=== PATIENT | female | born 1960 | race Caucasian/White ===

== ENCOUNTER 2020-01-25 00:12 | Emergency (ER) | payer MEDICAID ==
--- NOTE | 2020-01-25 00:52 | EDM.PDOC ---
ED HPI GENERAL MEDICAL PROBLEM - General Chief Complaint: Cardiovascular Problem Stated Complaint: HEART ISSUES Time Seen by Provider: 01/25/20 00:44 Source of Information: Reports: Patient, RN Notes Reviewed History Limitations: Reports: No Limitations - History of Present Illness INITIAL COMMENTS - FREE TEXT/NARRATIVE: 59-year-old female presents emergency department a complaint of difficulty swallowing she states is been going on for 10 days unable to get any solid foods down is still able to drink liquids but has not been able to get her pills down because it feels like they get stuck. She was told by her primary care provider that no EGDs will be done during the [place] pandemic this is why she waited, but she has not been able to take any of her blood pressure medications and she does admit to high anxiety. - Related Data Allergies Allergy/AdvReac Type Severity Reaction Status Date / Time No Known Allergies Allergy Verified 01/25/20 00:25 Home Meds: Home Meds Albuterol Sulfate [Albuterol Sulfate Hfa] 2 puff INH Q4H 01/25/20 [History] Citalopram [Citalopram HBr] 20 mg PO DAILY 01/25/20 [History] LORazepam [Lorazepam] 1 mg PO Q6H PRN 01/25/20 [History] Levothyroxine 1 tab PO DAILY 01/25/20 [History] Omeprazole 40 mg PO DAILY 01/25/20 [History] Oxybutynin 1 tab PO BID 01/25/20 [History] lisinopriL [Lisinopril] 1 tab PO DAILY 01/25/20 [History] Past Medical History HEENT History: Reports: Impaired Vision Cardiovascular History: Reports: Hypertension Respiratory History: Reports: Asthma, Bronchitis, Recurrent Gastrointestinal History: Reports: GERD Genitourinary History: Reports: Urinary Incontinence 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: Musculoskeletal History: Reports: Osteoarthritis, Other (See Below) Other Musculoskeletal History: cubital tunnel Psychiatric History: Reports: Anxiety, Depression Endocrine/Metabolic History: Reports: Hypothyroidism - Infectious Disease History Infectious Disease History: Reports: Chicken Pox, Measles, Mumps - Past Surgical History GI Surgical History: Reports: Cholecystectomy, Colonoscopy Female Surgical History: Reports: Tubal Ligation Social & Family History - Family History Family Medical History: Noncontributory - Tobacco Use Smoking Status *Q: Never Smoker - Caffeine Use Caffeine Use: Reports: None - Recreational Drug Use Recreational Drug Use: No ED ROS GENERAL - Review of Systems Review Of Systems: See Below Constitutional: Reports: No Symptoms HEENT: Reports: Other (Difficulty swallowing) Respiratory: Reports: No Symptoms Cardiovascular: Reports: No Symptoms GI/Abdominal: Reports: Difficulty Swallowing : Reports: No Symptoms Psychiatric: Reports: Anxiety ED EXAM, GENERAL - Physical Exam Exam: See Below Exam Limited By: No Limitations General Appearance: Alert, WD/WN, No Apparent Distress Respiratory/Chest: No Respiratory Distress, Lungs Clear, Normal Breath Sounds, No Accessory Muscle Use, Chest Non-Tender Cardiovascular: Regular Rate, Rhythm, No Murmur GI/Abdominal: Soft, Non-Tender Course - Vital Signs Last Recorded V/S: Last Vital Signs Temp 97.0 F 01/25/20 00:30 Pulse 103 H 01/25/20 00:30 Resp 16 01/25/20 00:30 BP 139/98 H 01/25/20 00:30 Pulse Ox 98 01/25/20 00:30 - Orders/Labs/Meds Labs: Laboratory Tests 01/25/20 01/25/20 Range/Units 01:00 01:00 WBC 9.7 (4.5-11.0) K/uL RBC 5.65 H (3.30-5.50) M/uL Hgb 15.5 H (12.0-15.0) g/dL Hct 47.3 (36.0-48.0) % MCV 84 (80-98) fL MCH 27 (27-31) pg MCHC 33 (32-36) % Plt Count 364 (150-400) K/uL Neut % (Auto) 66 (36-66) % Lymph % (Auto) 28 (24-44) % [place] % (Auto) 6 (2-6) % Eos % (Auto) 1 L (2-4) % Baso % (Auto) 0 (0-1) % Sodium 139 L (140-148) mmol/L Potassium 3.4 L (3.6-5.2) mmol/L Chloride 102 (100-108) mmol/L Carbon Dioxide 20 L (21-32) mmol/L Anion Gap 20.4 H (5.0-14.0) mmol/L BUN 12 (7-18) mg/dL Creatinine 0.9 (0.6-1.0) mg/dL Est Cr Clr Drug Dosing 52.57 mL/min Estimated GFR (MDRD) > 60 (>60) Glucose 87 (74-106) mg/dL Calcium 9.3 (8.5-10.1) mg/dL Total Bilirubin 0.5 (0.2-1.0) mg/dL AST 29 (15-37) U/L ALT 59 (12-78) U/L Alkaline Phosphatase 124 H (46-116) U/L Total Protein 8.5 H (6.4-8.2) g/dL Albumin 3.9 (3.4-5.0) g/dL Globulin 4.6 H (2.3-3.5) g/dL Albumin/Globulin Ratio 0.9 L (1.2-2.2) Departure - Departure Time of Disposition: 01:33 Disposition: Home, Self-Care 01 Condition: Fair Clinical Impression: Dysphagia Qualifiers: Dysphagia type: esophageal phase Qualified Code(s): R13.10 - Dysphagia, unspecified Instructions: Dysphagia Referrals: PCP,None [Primary Care Provider] - Forms: ED Department Discharge Additional Instructions: Outpatient surgery will call you this morning for an appointment time with Dr. Helm to do an EGD on call return to the emergency department worsening of symptoms Sepsis Event Note - Evaluation Sepsis Screening Result: No Definite Risk - Focused Exam Vital Signs: Vital Signs Temp Pulse Resp BP Pulse Ox 01/25/20 00:30 97.0 F 103 H 16 139/98 H 98 Date Exam was Performed: 01/25/20 Time Exam was Performed: 01:32 - Assessment/Plan Plan: Assessment Acuity = acute Site and laterality = dysphagia Etiology = unknown Manifestations = difficulty swallowing medications Location of injury = Home Lab values = CBC CMP unremarkable Plan Call discussed case Dr. Helm at 120 recommended EGD she will be set up for an EGD of this week continue to push liquids and trying put medications into putting to get them down, outpatient surgery will call her this morning for an appointment time This note was dictated using [employer] voice recognition software please call with any questions on syntax or grammar.
== END 2020-01-25 01:44 | disposition home or self-care (01) ==
LOC: JP.ED 00:12
DX: R13.10 Dysphagia, unspecified (principal); I10 Essential (primary) hypertension; J45.909 Unspecified asthma, uncomplicated; K21.9 Gastro-esophageal reflux disease without esophagitis; M19.90 Unspecified osteoarthritis, unspecified site; F41.9 Anxiety disorder, unspecified; F32.9 Major depressive disorder, single episode, unspecified; E03.9 Hypothyroidism, unspecified; Z79.899 Other long term (current) drug therapy
CPT/HCPCS: 36415; 80053; 85025; 99284

== ENCOUNTER → 2020-01-26 | Day surgery (SDC) | payer MEDICAID ==
[~2020-01-26] MED LIST: Dexamethasone 4 MG/ML SDV ONE; Dextrose 5%-Lactated Ringers 1,000 ML IV SCH; Glycopyrrolate 0.2 MG/ML 2 ML SDV IVPUSH ONE; Glycopyrrolate 0.2 MG/ML 5 ML MDV ONE; Meropenem 500 MG SDV ONE; Midazolam 1 MG/ML 2 ML SDV ONE; Neostigmine Methylsulfate 1 MG/ML 5 ML Syringe ONE; Ondansetron 4 MG/2 ML SDV ONE; Propofol 200 MG/20 ML SDV ONE; Rocuronium 50 MG/5 ML Vial ONE; Succinylcholine 200 MG/10 ML MDV ONE; fentaNYL 100 MCG/2 ML SDV ONE; fentaNYL 250 MCG/5 ML SDV ONE
--- NOTE | 2020-02-08 16:08 | OR ---
DATE OF PROCEDURE: 01/26/2020 SURGEON: Mike Helm MD PREOPERATIVE DIAGNOSIS: Gastroesophageal reflux disease with dysphagia referable to laryngopharyngeal level. POSTOPERATIVE DIAGNOSIS: Gastroesophageal reflux disease with: 1. Reddened and edematous hypopharynx and larynx. 2. Moderate-sized hiatal hernia with active inflammation. 3. Mild antral gastritis. OPERATIVE PROCEDURE: Esophagogastroduodenoscopy with: 1. Biopsies of esophagogastric junction for histologic evaluation. 2. Biopsies of antrum for CLOtest. ANESTHESIA: IV sedation. INDICATION FOR PROCEDURE: This is a 59-year-old female with a history of worsening gastroesophageal reflux disease. This has been associated recently with worsening problems with laryngopharyngeal dysphagia. The patient does report bile getting up into throat and as such she presently has been on omeprazole without adequate control of the symptoms. Plan is to proceed with upper GI endoscopy with biopsies and dilation as indicated. Potential risks including bleeding and perforation were discussed, and the patient wishes to proceed. DETAILS OF PROCEDURE: The patient was taken to the operating room, placed in a left lateral decubitus position. IV sedation was administered, after which the upper GI endoscope was passed orally through the length of esophagus into the stomach with retroflexion view of the fundus, and thereafter through the pyloric channel and into the proximal duodenum. Findings included some reddening and edema of the hypopharynx and larynx, consistent with some ongoing reflux. The upper esophageal sphincter and esophageal body were unremarkable. There was moderate-sized hiatal hernia measuring around 3 cm and quite active inflammation of the distal esophagus. There was a slight upward extension of the gastroesophageal junction mucosal line, potentially associated with some Hernandez esophagus. There was no gross evidence of plaquing and no stricturing at the esophagogastric junction. Within the stomach, there was some mild patchy redness in the antrum. Otherwise, the pyloric channel, duodenum at the junction of third and fourth portions were unremarkable. At this point, biopsies were obtained from the antrum and sent for CLOtest for H. pylori. Multiple biopsies were obtained from esophagogastric junction and sent for histologic evaluation and no bleeding was seen. Scope was then withdrawn and the procedure was then concluded. Prior to the procedure, we had initially discussed possible surgical intervention and following today's findings the patient wishes to proceed with a Corinna fundoplication that will be set up for tomorrow. The potential side effects and complications were reviewed, and those will be reviewed once again tomorrow morning prior to the procedure. Mike Helm MD /[id number]
== END ==
LOC: JP.SDS 06:52
PROVIDERS: ATTEND Surgery
DX: K21.0 Gastro-esophageal reflux disease with esophagitis (principal); K29.50 Unspecified chronic gastritis without bleeding; K22.70 Barrett's esophagus without dysplasia; K44.0 Diaphragmatic hernia with obstruction, without gangrene; J38.4 Edema of larynx; J39.2 Other diseases of pharynx; I10 Essential (primary) hypertension; F41.9 Anxiety disorder, unspecified
CPT/HCPCS: 36415; 43239; 80053; 83735; 84100; 85027; 87081; 88305; J2185; J2250; J2704; J3010; J3490; J7121

== ENCOUNTER 2020-01-27 05:37 | Inpatient (IN) | payer MEDICAID ==
[2020-01-27] MEDS ORDERED: Acetaminophen 500 MG Tab PO ONE (05:45)
[2020-01-27] MEDS ORDERED: Scopolamine 1.5 MG Transdermal Patch TRDERM SCH (05:45)
[2020-01-27] MEDS ORDERED: Dextrose 5%-Lactated Ringers 1,000 ML IV SCH ×2 (06:00→10:15)
[2020-01-27] MEDS ORDERED: ceFAZolin 2 GM in Premix Bag 1 BAG IV ONE (07:15)
[2020-01-27] MEDS ORDERED: Albuterol/Ipratropium 3.0-0.5 MG/3 ML Neb Soln NEB ONE (07:15)
[2020-01-27] MEDS ORDERED: Ropivacaine 50 ML, dexAMETHasone 8 MG, EPINEPHrine 0.4 MG, Sodium Chloride 0.9% 27.6 ML NERVRT SCH ×4 (07:30)
[2020-01-27] MEDS ORDERED: Ketamine 50 MG in Sodium Chloride 0.9% 49.5 ML IV SCH (07:30)
[2020-01-27] MEDS ORDERED: Ketamine 500 MG/5 ML MDV IV SCH (07:30)
[2020-01-27] MEDS ORDERED: Dexamethasone 4 MG/ML SDV ONE (08:00)
[2020-01-27] MEDS ORDERED: Neostigmine Methylsulfate 1 MG/ML 5 ML Syringe ONE (08:00)
[2020-01-27] MEDS ORDERED: fentaNYL 100 MCG/2 ML SDV ONE (08:00)
[2020-01-27] MEDS ORDERED: Propofol 200 MG/20 ML SDV ONE (08:00)
[2020-01-27] MEDS ORDERED: fentaNYL 250 MCG/5 ML SDV ONE (08:00)
[2020-01-27] MEDS ORDERED: Rocuronium 50 MG/5 ML Vial ONE (08:00)
[2020-01-27] MEDS ORDERED: Succinylcholine 200 MG/10 ML MDV ONE (08:00)
[2020-01-27] MEDS ORDERED: Ondansetron 4 MG/2 ML SDV ONE (08:00)
[2020-01-27] MEDS ORDERED: Glycopyrrolate 0.2 MG/ML 5 ML MDV ONE (08:00)
[2020-01-27] MEDS ORDERED: hydrOXYzine HCL 100 MG/2 ML SDV IM ONE (08:47)
[2020-01-27] MEDS ORDERED: HYDROmorphone 0.5 MG/0.5 ML Syringe IVPUSH PRN (10:15)
[2020-01-27] MEDS ORDERED: Ondansetron 4 MG/2 ML SDV IVPUSH PRN (10:15)
[2020-01-27] MEDS ORDERED: Albuterol/Ipratropium 3.0-0.5 MG/3 ML Neb Soln INH PRN (10:15)
[2020-01-27] MEDS ORDERED: HYDROmorphone 1 MG/ML Syringe IV PRN (10:15)
[2020-01-27] MEDS ORDERED: HYDROmorphone 2 MG Tab PO PRN (10:18)
[2020-01-27] MEDS ORDERED: LORazepam 1 MG Tab PO PRN (10:20)
[2020-01-27] MEDS: Albuterol/Ipratropium 3.0-0.5 MG/3 ML Neb Soln INH SCH ×3 (10:43→20:07)
[2020-01-27] MEDS: Metoclopramide 10 MG/2 ML SDV IVPUSH SCH ×3 (12:35→23:25)
[2020-01-27] MEDS: Pantoprazole 40 MG Vial IVPUSH SCH (12:35)
[2020-01-27] MEDS: Acetaminophen 325 MG Tab PO SCH ×3 (12:36→23:33)
[2020-01-27] MEDS: ceFAZolin 2 GM in Premix Bag 1 BAG IV SCH ×2 (16:48→23:25)
[2020-01-27] MEDS: Oxybutynin 5 MG Tab PO SCH (20:02)
[2020-01-27] MEDS: Ketotifen 0.025% Ophth Soln 5 ML Bottle EYEBOTH SCH (20:02)
[2020-01-28] MEDS: Metoclopramide 10 MG/2 ML SDV IVPUSH SCH ×4 (05:19→23:49)
[2020-01-28] MEDS: Acetaminophen 325 MG Tab PO SCH ×4 (05:30→23:53)
[2020-01-28] MEDS: Albuterol/Ipratropium 3.0-0.5 MG/3 ML Neb Soln INH SCH ×4 (07:20→20:04)
[2020-01-28] MEDS: Levothyroxine 112 MCG Tab PO SCH (07:26)
[2020-01-28] MEDS: Ketotifen 0.025% Ophth Soln 5 ML Bottle EYEBOTH SCH ×2 (10:01→20:04)
[2020-01-28] MEDS: Citalopram 20 MG Tab PO SCH (10:01)
[2020-01-28] MEDS: Oxybutynin 5 MG Tab PO SCH ×2 (10:02→20:04)
[2020-01-28] MEDS: Lisinopril 20 MG Tab PO SCH (10:02)
[2020-01-28] MEDS: Pantoprazole 40 MG Vial IVPUSH SCH (12:15)
[2020-01-28] MEDS: Dextrose 5%-Lactated Ringers 1,000 ML IV SCH (16:20)
[2020-01-29] MEDS: Dextrose 5%-Lactated Ringers 1,000 ML IV SCH (03:48)
[2020-01-29] MEDS: Metoclopramide 10 MG/2 ML SDV IVPUSH SCH (05:24)
[2020-01-29] MEDS: Acetaminophen 325 MG Tab PO SCH (06:05)
[2020-01-29] MEDS: Albuterol/Ipratropium 3.0-0.5 MG/3 ML Neb Soln INH SCH (07:05)
[2020-01-29] MEDS: Levothyroxine 112 MCG Tab PO SCH (08:23)
[2020-01-29] MEDS: Citalopram 20 MG Tab PO SCH (08:30)
[2020-01-29] MEDS: Lisinopril 20 MG Tab PO SCH (08:30)
[2020-01-29] MEDS: Ketotifen 0.025% Ophth Soln 5 ML Bottle EYEBOTH SCH (08:30)
[2020-01-29] MEDS: Oxybutynin 5 MG Tab PO SCH (08:30)
[2020-01-29] MEDS ORDERED: methylPREDNISolone Sodium Succinate 125 MG/2 ML SDV IVPUSH ONE (08:45)
--- NOTE | 2020-01-29 11:19 | PN ---
DATE OF SERVICE: 01/28/2020 The patient is postop day 1 from a laparoscopic Corinna fundoplication along with excision of fairly substantial mediastinal lipoma. Clinically, she has done well with clear liquids and is having very little in the way of pain, even not needing a Tylenol per se. We will go up to full liquid diet today, switch over to oral pain medication exclusively if she needs any, and she will likely be ready for discharge home tomorrow. Mike Helm MD /[id number]
--- NOTE | 2020-02-06 12:34 | DISCH ---
FINAL DIAGNOSES: 1. Gastroesophageal reflux disease, refractory to medical management. 2. Large mediastinal lipoma. 3. History of hypothyroidism. 4. Distant history of hypertension. 5. Hyperlipidemia. 6. Anxiety. OPERATIVE PROCEDURES: Done on 01/27/2020, 1. Laparoscopic Corinna fundoplication with repair of paraesophageal diaphragmatic hernia with mesh. 2. Excision of mediastinal lipoma. SUMMARY: This is a 59-year-old female presenting with gastroesophageal reflux disease that has become quite refractory to medical management. She is also quite anxious regarding her possibility of developing esophageal carcinoma over time, as her father in his 60s of that disease. On 01/25/2020, the patient underwent an upper endoscopy which showed large hiatal hernia and wide open gastroesophageal reflux disease and active inflammation. The patient does complain of some dysphagia referable to laryngopharyngeal area but none distally and wished to proceed with a Corinna fundoplication, which was done with mesh augmentation of the crural repair on 01/27/2020. The patient had a quite large mediastinal lipoma which was also removed. Postoperatively, the patient was having some dysphagia to full liquids, specifically the Cream of Wheat-type consistency. She has been given a dose of Solu- Medrol IV today and did do a Medrol Dosepak starting tomorrow and also got a prescription for Levsin 0.125 mg sublingual q.4 hours p.r.n. Followup will be with Dr. Helm, of [facility] on 02/08/2020. DONOVAN
--- NOTE | 2020-02-08 15:29 | OR ---
DATE OF PROCEDURE: 01/27/2020 SURGEON: Mike Helm MD PREOPERATIVE DIAGNOSIS: Gastroesophageal reflux disease refractory to medical management. POSTOPERATIVE DIAGNOSES: 1. 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 2. Mediastinal lipoma. OPERATIVE PROCEDURES: 1. Laparoscopic Corinna fundoplication with repair of paraesophageal diaphragmatic hernia with mesh (11988). 2. Excision of mediastinal lipoma (74496). ANESTHESIA: General. PHOTOGRAPHER ASSISTANT: Florencia Sloan PA-C INDICATIONS FOR PROCEDURE: This is a 59-year-old female presenting with worsening gastroesophageal reflux disease that has essentially become refractory to medical management, associated with quite a bit in the way of laryngopharyngeal inflammation. Plan is to proceed with a Corinna fundoplication. Potential risks including bleeding, infection, injury to underlying viscera, problems with fundoplication such as dysphagia, gas bloat syndrome, disorders of gastric emptying rate, as well as the possibility of incomplete relief of reflux symptoms were all reviewed, and the patient wishes to proceed. DETAILS OF PROCEDURE: The patient was taken to the operating room and placed in a supine position. After general endotracheal anesthesia was induced, the abdomen was prepped and draped. The patient was placed into a lithotomy position. 15 cm inferior and 5 cm left of the xiphoid process, a transverse incision was made and the peritoneal cavity entered under direct vision with an Optiview trocar and inflated to 15 mmHg pressure with CO2. Laparoscope was reinserted and no underlying trocar insertion site injuries were seen. Bilateral transversus abdominis plane blocks were then placed and 4 additional trocars were placed across the upper and mid abdomen. The findings upon elevation of the liver showed a significant paraesophageal component to the hiatal hernia with prolapse of perigastric fat, gastric fundus and a tongue of omentum in a plane anterior to the course of the esophagus. The hernia was then reduced and the peritoneum overlying incised and reflected downward. The distal esophagus was then dissected away from the right and left crura and retroesophageal window constructed. During the course of this dissection, significant paraesophageal diaphragmatic hernia was encountered, and this was excised in, what was, a piecemeal fashion. Once the retroesophageal window was established, additional soft tissue attachments to the distal esophagus were taken down with Harmonic scalpel. This resulted in roughly 5 cm length of intraabdominal esophagus. Crural repair was then accomplished with 0 Ethibond sutures reinforced with PTFE pledgets. The size of the crural defect and thinness of the muscle dictated use of some Phasix ST mesh placed across the crural repair and affixed on each side with titanium tacking screws. The greater omentum was then divided away from the proximal portion of the greater curvature of the stomach with Harmonic scalpel. This dissection then continued proximally dividing the short gastric vessels including the highest and posterior short gastric vessels. The remaining attachments of fundus to the left crura were then taken down while skeletonizing the left crura. This resulted in a nicely mobile fundus, which was retrieved through the retroesophageal window. The learning coordinator then placed a guidewire orally through the length of the esophagus into the stomach. Over this, a 54-Malay dilator was placed. Over this, a 3-stitch 2 cm fundoplication was accomplished with 0 Ethibond sutures reinforced with PTFE pledgets. Each of the sutures included bites of the underlying esophagus as well to help fix this in position and two sutures were then placed between the fundoplication and the overlying diaphragm with the same stitch pledget combination. At that point, the dilator and wire were removed and fundoplication was noted to be satisfactorily floppy and no further problems were noted. Trocars were removed and peritoneal cavity deflated. Incisions were closed with 4-0 Vicryl skin stitch and a dressing applied. The patient was taken to the recovery room in satisfactory condition. Physician recovery assistant, Florencia Sloan, played an essential role in assisting in this case; helping to position the patient, retract structures as needed, as well as suturing and cutting sutures when indicated. Her presence improved patient safety and decreased the operative time. Mike Helm MD /[id number]
== END 2020-01-29 09:45 | disposition home or self-care (01) | DRG 328 ==
LOC: JP.SDSSCHI 05:37 → JP.SDS 05:37 → EDSTATUS 07:15 → JP.MS 08:35
PROVIDERS: ADMIT Surgery; ATTEND Surgery
PROC: 0DV44ZZ Restriction of Esophagogastric Junction, Percutaneous Endoscopic Approach (ICD-10-PCS; principal; 2020-01-27)
PROC: 0BUT4JZ Supplement Diaphragm with Synthetic Substitute, Percutaneous Endoscopic Approach (ICD-10-PCS; 2020-01-27)
PROC: 0JB63ZZ Excision of Chest Subcutaneous Tissue and Fascia, Percutaneous Approach (ICD-10-PCS; 2020-01-27)
DX: K21.9 Gastro-esophageal reflux disease without esophagitis (principal); D17.1 Benign lipomatous neoplasm of skin and subcutaneous tissue of trunk
CPT/HCPCS: 88304; 93005; 94640; A9270-GY; C1713; C1781; C9113; J0171; J0330; J0690; J1100; J1170; J2405; J2704; J2710; J2765; J2795; J2930; J3010; J3410; J3490; J7050; J7121; J7620-GY

== ENCOUNTER 2020-01-30 22:40 | Observation (INO) | payer MEDICAID ==
--- NOTE | 2020-01-30 23:36 | EDM.PDOC ---
ED HPI GENERAL MEDICAL PROBLEM - General Chief Complaint: General Stated Complaint: SHAKY POST SURGERY Time Seen by Provider: 01/30/20 23:26 Source of Information: Reports: Patient, Family History Limitations: Reports: Other (Anxiety) - History of Present Illness INITIAL COMMENTS - FREE TEXT/NARRATIVE: Patient presents for evaluation of shakiness since surgery on Thursday, 26 January. She underwent a Corinna fundoplication here on the and was then discharged 24 hours later on Thursday, the . Since that time she has been sitting upright in a chair for much of her day including while trying to sleep. She has not been taking in much in the way of liquid or food. When I asked her why that was, she stated that she is nervous about how things might feel since the surgery. She has not taken any of her daily medications since returning home although they were crushed and given with food while she was in the hospital. She contacted an advice line [facility] which recommended that she come in tomorrow , in the morning, but she was concerned about the totality of her symptoms including tingling in her fingers. Minimal nausea but no vomiting. She's had a small hard stool but no diarrhea. No distention feelings but has diffuse abdominal discomfort. Her is her primary historian and when asked why that is, she states again that she is very anxious. - Related Data Allergies Allergy/AdvReac Type Severity Reaction Status Date / Time No Known Allergies Allergy Verified 01/30/20 23:20 Home Meds: Home Meds Albuterol Sulfate [Albuterol Sulfate Hfa] 2 puff INH Q4H 01/25/20 [History] Citalopram [Citalopram HBr] 20 mg PO DAILY 01/25/20 [History] Ketotifen Fumarate [Zaditor] 1 drop OP BID 01/25/20 [History] LORazepam [Lorazepam] 1 mg PO Q6H PRN 01/25/20 [History] Levothyroxine 112 mg PO DAILY 01/25/20 [History] Omeprazole 40 mg PO DAILY 01/25/20 [History] Oxybutynin 5 mg PO BID 01/25/20 [History] lisinopriL [Lisinopril] 20 mg PO DAILY 01/25/20 [History] Past Medical History HEENT History: Reports: Impaired Vision Cardiovascular History: Reports: Hypertension Respiratory History: Reports: Asthma, Bronchitis, Recurrent Gastrointestinal History: Reports: GERD Genitourinary History: Reports: Urinary Incontinence 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: Musculoskeletal History: Reports: Osteoarthritis, Other (See Below) Other Musculoskeletal History: cubital tunnel Psychiatric History: Reports: Anxiety, Depression Endocrine/Metabolic History: Reports: Hypothyroidism - Infectious Disease History Infectious Disease History: Reports: Chicken Pox, Measles, Mumps - Past Surgical History GI Surgical History: Reports: Cholecystectomy, Colonoscopy, EGD Female Surgical History: Reports: Tubal Ligation Musculoskeletal Surgical History: Reports: Carpal Tunnel Social & Family History - Family History Family Medical History: Noncontributory Cardiac: Reports: CA, Pacemaker - Tobacco Use Smoking Status *Q: Never Smoker - Caffeine Use Caffeine Use: Reports: None ED ROS GENERAL - Review of Systems Review Of Systems: See Below Constitutional: Reports: Malaise, Weakness HEENT: Reports: No Symptoms Respiratory: Reports: No Symptoms Cardiovascular: Reports: No Symptoms GI/Abdominal: Reports: Abdominal Pain Skin: Reports: Other (Incisions are intact.) Neurological: Reports: Confusion, Dizziness, Paresthesia (Hands and occasionally feet during her stay.) Psychiatric: Reports: Anxiety Hematologic/Lymphatic: Reports: No Symptoms ED EXAM, GENERAL - Physical Exam Exam: See Below Free Text/Narrative:: Initially in response to questions the patient would repeat "I don't know." Her , who seemed composed, provided fill in history. Patient did not appear acutely ill. Exam Limited By: Other (Anxiety) General Appearance: Alert, No Apparent Distress Nose: Normal Inspection Respiratory/Chest: No Respiratory Distress, Lungs Clear Cardiovascular: Tachycardia GI/Abdominal: Soft, Tender (In vicinity of laparoscopic incisions.), Abnormal Bowel Sounds (Infrequent) Extremities: Normal Inspection Neurological: Other (During the discussion, at times she would ask her the same question several times in a row yet when we were discussing high school chemistry class, she could recall details of the periodic table of the elements with Crystal clarity.) Psychiatric: Anxious, Tearful Lymphatic: No Adenopathy Course - Vital Signs Last Recorded V/S: Last Vital Signs Temp 36.2 C 01/30/20 23:24 Pulse 97 01/31/20 01:15 Resp 20 01/31/20 01:15 BP 163/106 H 01/31/20 01:15 Pulse Ox 98 01/31/20 01:15 - Orders/Labs/Meds Orders: Active Orders 24 hr Category Date Time Status Patient Status Manage Transfer [TRANSFER] Routine ADT 01/31/20 01:43 Active Patient Status [ADT] Routine ADT 01/31/20 01:28 Active Bedrest Bathroom Privileges [RC] ASDIRECTED Care 01/31/20 01:28 Active Oxygen Therapy [RC] PRN Care 01/31/20 01:28 Active VTE/DVT Education [RC] Per Unit Routine Care 01/31/20 01:28 Active Vital Signs [RC] Q4H Care 01/31/20 01:28 Active Full Liquid Diet [DIET] Diet 01/31/20 Breakfast Ordered Abdomen 1V Upright [CR] Stat Exams 01/31/20 00:05 Taken BASIC METABOLIC PANEL,BMP [CHEM] AM Lab 01/31/20 05:11 Ordered Albuterol [Ventolin HFA] Med 01/31/20 02:00 Active 0 gm INH Q4H Citalopram [Celexa] Med 01/31/20 09:00 Active 20 mg PO DAILY Ketotifen [Ketotifen 0.025% Ophth Soln] Med 01/31/20 09:00 Active 0 ml EYEBOTH BID LORazepam [Ativan] Med 01/31/20 01:28 Active 0.5 mg IV Q6H PRN LORazepam [Ativan] Med 01/31/20 02:00 Active 1 mg PO Q6H PRN Lactated Ringers [Ringers, Lactated] 1,000 ml Med 01/31/20 01:30 Active IV ASDIRECTED Levothyroxine Med 01/31/20 07:30 Active 112 mcg PO ACBREAKFAST Ondansetron [Zofran] Med 01/31/20 01:28 Active 4 mg IV Q4H PRN Oxybutynin Med 01/31/20 09:00 Active 5 mg PO BID Pantoprazole [ProTONIX] Med 01/31/20 07:30 Active 40 mg PO ACBREAKFAST Potassium Chloride [KCL 20 MEQ in Water 100 ML] 20 meq Med 01/31/20 00:22 Ordered Premix Bag 1 bag IV ONETIME Potassium Chloride [KCL 20 MEQ in Water 100 ML] 20 meq Med 01/31/20 01:42 Active Premix Bag 1 bag IV ONETIME Sodium Chloride 0.9% [Saline Flush] Med 01/30/20 23:39 Ordered 10 ml FLUSH ASDIRECTED PRN lisinopriL [Prinivil] Med 01/31/20 09:00 Active 20 mg PO DAILY Saline Lock Insert [OM.PC] Routine Oth 01/30/20 23:39 Ordered Resuscitation Status Routine Resus Stat 01/31/20 01:28 Ordered Medication Orders Albuterol (Ventolin Hfa) 0 gm INH Q4H BLAYNE Citalopram Hydrobromide (Celexa) 20 mg PO DAILY BLAYNE Potassium Chloride 20 meq/ (Premix) 100 mls @ 50 mls/hr IV ONETIME ONE Stop: 01/31/20 02:21 Last Admin: 01/31/20 00:41 Dose: 50 mls/hr Lactated Ringer's (Ringers, Lactated) 1,000 mls @ 125 mls/hr IV ASDIRECTED BLAYNE Potassium Chloride 20 meq/ (Premix) 100 mls @ 50 mls/hr IV ONETIME ONE Stop: 01/31/20 03:41 Ketotifen Fumarate (Ketotifen 0.025% Ophth Soln) 0 ml EYEBOTH BID BLAYNE Levothyroxine Sodium (Levothyroxine) 112 mcg PO ACBREAKFAST BLAYNE Lisinopril (Prinivil) 20 mg PO DAILY BLAYNE Lorazepam (Ativan) 0.5 mg IV Q6H PRN PRN Reason: Nausea/Vomiting Lorazepam (Ativan) 1 mg PO Q6H PRN PRN Reason: Anxiety Ondansetron HCl (Zofran) 4 mg IV Q4H PRN PRN Reason: Nausea/Vomiting Oxybutynin Chloride (Oxybutynin) 5 mg PO BID BLAYNE Pantoprazole Sodium (Protonix) 40 mg PO ACBREAKFAST BLAYNE Sodium Chloride (Saline Flush) 10 ml FLUSH ASDIRECTED PRN PRN Reason: Keep Vein Open Last Admin: 01/31/20 00:01 Dose: 10 ml Labs: Laboratory Tests 01/30/20 01/30/20 Range/Units 23:50 23:50 WBC 8.5 (4.5-11.0) K/uL RBC 5.20 (3.30-5.50) M/uL Hgb 14.8 (12.0-15.0) g/dL Hct 43.9 (36.0-48.0) % MCV 84 (80-98) fL MCH 29 (27-31) pg MCHC 34 (32-36) % Plt Count 322 (150-400) K/uL Neut % (Auto) 74 H (36-66) % Lymph % (Auto) 19 L (24-44) % [place] % (Auto) 6 (2-6) % Eos % (Auto) 1 L (2-4) % Baso % (Auto) 0 (0-1) % Sodium 142 (140-148) mmol/L Potassium 2.6 L* (3.6-5.2) mmol/L Chloride 101 (100-108) mmol/L Carbon Dioxide 25 (21-32) mmol/L Anion Gap 18.6 H (5.0-14.0) mmol/L BUN 9 (7-18) mg/dL Creatinine 0.9 (0.6-1.0) mg/dL Est Cr Clr Drug Dosing TNP Estimated GFR (MDRD) > 60 (>60) Glucose 102 (74-106) mg/dL Calcium 8.3 L (8.5-10.1) mg/dL Total Bilirubin 0.8 D (0.2-1.0) mg/dL AST 73 H D (15-37) U/L ALT 101 H (12-78) U/L Alkaline Phosphatase 110 (46-116) U/L Total Protein 7.5 (6.4-8.2) g/dL Albumin 3.2 L (3.4-5.0) g/dL Globulin 4.3 H (2.3-3.5) g/dL Albumin/Globulin Ratio 0.7 L (1.2-2.2) Lipase 77 (73-393) U/L Meds: Medications Generic Name Dose Route Start Last Admin Trade Name Freq PRN Reason Stop Dose Admin Albuterol 0 gm 01/31/20 02:00 Ventolin Hfa INH Q4H BLAYNE Citalopram Hydrobromide 20 mg 01/31/20 09:00 Celexa PO DAILY BLAYNE Potassium Chloride 20 meq/ 100 mls @ 50 mls/hr 01/31/20 00:22 01/31/20 00:41 Premix IV 01/31/20 02:21 50 mls/hr ONETIME ONE Administration Lactated Ringer's 1,000 mls @ 125 mls/hr 01/31/20 01:30 Ringers, Lactated IV ASDIRECTED BLAYNE Potassium Chloride 20 meq/ 100 mls @ 50 mls/hr 01/31/20 01:42 Premix IV 01/31/20 03:41 ONETIME ONE Ketotifen Fumarate 0 ml 01/31/20 09:00 Ketotifen 0.025% Ophth Soln EYEBOTH BID BLAYNE Levothyroxine Sodium 112 mcg 01/31/20 07:30 Levothyroxine PO ACBREAKFAST BLAYNE Lisinopril 20 mg 01/31/20 09:00 Prinivil PO DAILY BLAYNE Lorazepam 0.5 mg 01/31/20 01:28 Ativan IV Q6H PRN Nausea/Vomiting Lorazepam 1 mg 01/31/20 02:00 Ativan PO Q6H PRN Anxiety Ondansetron HCl 4 mg 01/31/20 01:28 Zofran IV Q4H PRN Nausea/Vomiting Oxybutynin Chloride 5 mg 01/31/20 09:00 Oxybutynin PO BID BLAYNE Pantoprazole Sodium 40 mg 01/31/20 07:30 Protonix PO ACBREAKFAST BLAYNE Sodium Chloride 10 ml 01/30/20 23:39 01/31/20 00:01 Saline Flush FLUSH 10 ml ASDIRECTED PRN Administration Keep Vein Open Discontinued Medications Generic Name Dose Route Start Last Admin Trade Name Freq PRN Reason Stop Dose Admin Lactated Ringer's 1,000 mls @ 999 mls/hr 01/30/20 23:39 01/31/20 00:00 Ringers, Lactated IV 01/31/20 00:39 999 mls/hr BOLUS ONE Administration Lorazepam 0.5 mg 01/31/20 00:25 01/31/20 00:41 Ativan IVPUSH 01/31/20 00:26 0.5 mg ONETIME ONE Administration Ondansetron HCl 4 mg 01/31/20 00:20 01/31/20 00:41 Zofran IVPUSH 01/31/20 00:21 4 mg ONETIME ONE Administration - Re-Assessments/Exams Free Text/Narrative Re-Assessment/Exam: 01/31/20 02:27 Patient will be given 1 L of lactated Ringer's while laboratory testing is proceeding. An upright abdomen plain film did not show any evidence of obstruction or free air. Eventually, her potassium was shown to be 2.6 and a 20 mEq infusion was added to her IV fluids. When I returned to review test results with her, at times she seemed very lucid and detail oriented in the conversation especially as it related to chemistry class of decades ago. At other times, she would miss speak in terms of her grandson waiting in the lobby or other historical items. When asked about some of her responses, she stated that "I've always been very anxious and I'm sure that's influencing some of this." We discussed receiving IV potassium here versus oral potassium repletion at home. Because of her anxiety, I think it would be difficult to get her to comply with oral potassium supplementation at home at this time. I reviewed her case with the hospitalist sanitation manager who will arrange admission and further evaluation. Departure - Departure Time of Disposition: :30 Disposition: Admitted As Inpatient 66 Condition: Good Clinical Impression: Hypokalemia, Anxiety, Weakness - Discharge Information Referrals: PCP,None [Primary Care Provider] - Forms: ED Department Discharge Sepsis Event Note - Evaluation Sepsis Screening Result: No Definite Risk - Focused Exam Vital Signs: Vital Signs Temp Pulse Resp BP Pulse Ox 01/31/20 01:15 97 20 163/106 H 98 01/30/20 23:56 95 96 01/30/20 23:30 149/101 H 01/30/20 23:25 97 18 155/104 H 96 01/30/20 23:24 36.2 C 98 18 167/110 H 97 01/30/20 23:08 36.2 C 98 18 167/110 H 97 Date Exam was Performed: 01/31/20 Time Exam was Performed: 02:18 - My Orders Last 24 Hours: My Active Orders 01/30/20 23:39 Sodium Chloride 0.9% [Saline Flush] 10 ml FLUSH ASDIRECTED PRN Saline Lock Insert [OM.PC] Routine 01/31/20 00:05 Abdomen 1V Upright [CR] Stat 01/31/20 00:22 Potassium Chloride [KCL 20 MEQ in Water 100 ML] 20 meq Premix Bag 1 bag IV ONETIME - Assessment/Plan Last 24 Hours: My Active Orders 01/30/20 23:39 Sodium Chloride 0.9% [Saline Flush] 10 ml FLUSH ASDIRECTED PRN Saline Lock Insert [OM.PC] Routine 01/31/20 00:05 Abdomen 1V Upright [CR] Stat 01/31/20 00:22 Potassium Chloride [KCL 20 MEQ in Water 100 ML] 20 meq Premix Bag 1 bag IV ONETIME
[2020-01-30] MEDS ORDERED: Sodium Chloride 0.9% 10 ML Syringe FLUSH PRN (23:39)
[2020-01-30] MEDS ORDERED: Lactated Ringers 1,000 ML IV ONE (23:39)
[2020-01-31] MEDS ORDERED: Ondansetron 4 MG/2 ML SDV IVPUSH ONE (00:20)
[2020-01-31] MEDS ORDERED: Potassium Chloride 20 MEQ in Premix Bag 1 BAG IV ONE ×2 (00:22→01:42)
[2020-01-31] MEDS ORDERED: LORazepam 2 MG/ML SDV IVPUSH ONE (00:25)
[2020-01-31] MEDS ORDERED: Ondansetron 4 MG/2 ML SDV IV PRN (01:28)
[2020-01-31] MEDS ORDERED: LORazepam 1 MG Tab PO PRN (02:00)
[2020-01-31] MEDS: Lactated Ringers 1,000 ML IV SCH ×2 (02:49→10:39)
[2020-01-31] MEDS: Albuterol 8 GM Inhaler INH SCH ×2 (02:54→06:23)
[2020-01-31] MEDS: LORazepam 2 MG/ML SDV IV PRN ×2 (03:17→11:23)
[2020-01-31] MEDS ORDERED: Albuterol 8 GM Inhaler INH PRN (07:56)
[2020-01-31] MEDS: Ketotifen 0.025% Ophth Soln 5 ML Bottle EYEBOTH SCH ×2 (08:51→21:23)
[2020-01-31] MEDS: Pantoprazole 40 MG Tab.CR PO SCH (08:55)
[2020-01-31] MEDS: Oxybutynin 5 MG Tab PO SCH ×2 (08:55→21:23)
[2020-01-31] MEDS: Levothyroxine 112 MCG Tab PO SCH (08:55)
[2020-01-31] MEDS: Citalopram 20 MG Tab PO SCH (08:55)
[2020-01-31] MEDS: Lisinopril 20 MG Tab PO SCH (08:55)
[2020-01-31] MEDS ORDERED: Ketotifen 0.025% Ophth Soln 5 ML Bottle EYEBOTH SCH (09:00)
[2020-01-31] MEDS ORDERED: Potassium Chloride Riders 40 MEQ in Premix Bag 1 BAG IV ONE (09:27)
[2020-01-31] MEDS ORDERED: Potassium Chloride 20 MEQ Tab.ER PO ONE ×2 (10:00→17:45)
[2020-01-31] MEDS ORDERED: Albuterol 8 GM Inhaler INH SCH (10:00)
--- NOTE | 2020-01-31 10:05 | HP ---
CHIEF COMPLAINT: Dizziness. HISTORY OF PRESENT ILLNESS: A 59-year-old who had Corinna fundoplication for reflux last week with Dr. Helm. All of a sudden today, felt dizzy and just did not feel right. She has had problems with hypokalemia in the past and felt similar to this. Presented to the emergency room, was evaluated by the emergency room physician, and was noted to have a low potassium of 2.6. The patient is started on IV potassium. I was asked to admit the patient for further evaluation and treatment. The patient denied any chest pain or trouble breathing. Denies any abdominal pain from her Corinna fundoplication. It sounds like the surgery went well. She is quite anxious and does have a history of anxiety. PAST MEDICAL HISTORY: 1. Corinna fundoplication last week. 2. Anxiety. 3. Hypertension. CURRENT MEDICATIONS: Albuterol p.r.n., citalopram 20 mg daily, Zaditor eye drops b.i.d., levothyroxine 112 mcg daily, lisinopril 20 mg daily, lorazepam 1 mg q.6 hours p.r.n., omeprazole 40 mg daily, oxybutynin 5 mg b.i.d. ALLERGIES: NO KNOWN DRUG ALLERGIES. SOCIAL HISTORY: Nonsmoker. No alcohol use. FAMILY HISTORY: Noncontributory. REVIEW OF SYSTEMS: Denies headaches, vision changes, upper respiratory symptoms. No chest pain or shortness of breath. [place] nauseated, but did not throw up. No diarrhea or constipation. No urinary problems. No swelling of her legs. No skin problems. No neurologic complaints other than above. OBJECTIVE: VITAL SIGNS: Weight 97.8 kg, temperature 36.2, pulse 98, blood pressure 167/110, latest was 149/101, respirations 18, and O2 saturation 97% on room air. GENERAL: The patient is alert and oriented, did appear to be anxious. HEENT: Pharynx is clear. NECK: Supple. No adenopathy, thyromegaly. LUNGS: Clear. HEART: Regular, without murmurs. ABDOMEN: Soft, nontender. Her incisions look good. No mass or organomegaly palpated. EXTREMITIES: No edema. SKIN: Negative. NEUROLOGIC: The patient does appear to be anxious, but otherwise alert and oriented. IMAGING DATA: Abdominal x-ray was unremarkable. LABORATORY DATA: White count 8.5, hemoglobin 14.8, platelets 322,000. Sodium 142, potassium is low at 2.6, chloride 101, BUN was 9, creatinine 0.9, glucose 102. Liver functions, AST was 73, ALT was 101. ASSESSMENT: 1. Hypokalemia with underlying anxiety. The patient was started on IV potassium, which we will continue. Give another 20 mEq and recheck potassium in the morning. We will admit her under observation. 2. Anxiety. Looks like she does take citalopram and lorazepam. 3. Recent Corinna fundoplication, which sounds like it went well for reflux. 4. Essential hypertension, which is up, which we will watch. Keenan Blum MD /[id number]
[2020-01-31] MEDS: Potassium Chloride 20 MEQ, Lidocaine 1% 2 ML in Sodium Chloride 0.9% 100 ML IV SCH ×2 (10:41→13:20)
--- NOTE | 2020-01-31 10:45 | CR ---
Abdomen 1V Upright CLINICAL HISTORY: Nausea FINDINGS: No free air is identified. Small intestinal configuration is nonacute. There are surgical clips in the right upper quadrant and epigastric region IMPRESSION: Nonacute intestinal gas pattern
[2020-01-31] MEDS ORDERED: LORazepam 2 MG/ML SDV IV PRN (13:31)
--- NOTE | 2020-01-31 13:39 | PCM.PN ---
- General Info Date of Service: 01/31/20 Subjective Update: Ms. Looney is a 59-year-old woman who was admitted to observation status through the emergency department with dehydration, hypokalemia, and anxiety. She underwent a Ana fundoplication last week and has had difficulty eating and getting liquids down since surgery. She readily admits that she has been extremely anxious about eating and this is complicated her recovery. She is received IV potassium replacement through the night and her potassium this morning is improved at 3.1, but still low. She continues to feel somewhat nauseated and very anxious. Functional Status: Reports: Ambulating, Urinating. Denies: Tolerating Diet - Review of Systems General: Reports: Weakness, Malaise. Denies: Fever, Chills Pulmonary: Reports: No Symptoms Cardiovascular: Reports: No Symptoms Gastrointestinal: Reports: Abdominal Pain, Nausea. Denies: Difficulty Swallowing, Hematochezia, Melena Psychiatric: Reports: Anxiety - Patient Data Vitals - Most Recent: Last Vital Signs Temp 98.2 F 01/31/20 12:42 Pulse 92 01/31/20 12:42 Resp 14 01/31/20 12:42 BP 133/88 01/31/20 12:42 Pulse Ox 96 01/31/20 12:42 Weight - Most Recent: 215 lb I&O - Last 24 Hours: Intake & Output 01/30/20 01/31/20 01/31/20 22:59 06:59 14:59 Intake Total 650 112 Balance 650 112 Lab Results Last 24 Hours: Laboratory Results - last 24 hr 01/30/20 01/30/20 01/31/20 Range/Units 23:50 23:50 05:30 WBC 8.5 (4.5-11.0) K/uL RBC 5.20 (3.30-5.50) M/uL Hgb 14.8 (12.0-15.0) g/dL Hct 43.9 (36.0-48.0) % MCV 84 (80-98) fL MCH 29 (27-31) pg MCHC 34 (32-36) % Plt Count 322 (150-400) K/uL Neut % (Auto) 74 H (36-66) % Lymph % (Auto) 19 L (24-44) % [place] % (Auto) 6 (2-6) % Eos % (Auto) 1 L (2-4) % Baso % (Auto) 0 (0-1) % Sodium 142 143 (140-148) mmol/L Potassium 2.6 L* 3.1 L (3.6-5.2) mmol/L Chloride 101 104 (100-108) mmol/L Carbon Dioxide 25 27 (21-32) mmol/L Anion Gap 18.6 H 15.1 H (5.0-14.0) mmol/L BUN 9 8 (7-18) mg/dL Creatinine 0.9 0.8 (0.6-1.0) mg/dL Est Cr Clr Drug Dosing TNP 61.86 Estimated GFR (MDRD) > 60 > 60 (>60) Glucose 102 84 (74-106) mg/dL Calcium 8.3 L 7.8 L (8.5-10.1) mg/dL Total Bilirubin 0.8 D (0.2-1.0) mg/dL AST 73 H D (15-37) U/L ALT 101 H (12-78) U/L Alkaline Phosphatase 110 (46-116) U/L Total Protein 7.5 (6.4-8.2) g/dL Albumin 3.2 L (3.4-5.0) g/dL Globulin 4.3 H (2.3-3.5) g/dL Albumin/Globulin Ratio 0.7 L (1.2-2.2) Lipase 77 (73-393) U/L Med Orders - Current: Current Medications Albuterol (Ventolin Hfa) 0 gm INH Q4H PRN PRN Reason: Shortness of Breath Citalopram Hydrobromide (Celexa) 20 mg PO DAILY [facility] Last Admin: 01/31/20 08:55 Dose: 20 mg Potassium Chloride 20 meq/Lidocaine HCl 2 ml/ Sodium Chloride 112 mls @ 56 mls/ hr IV Q2H BLAYNE Stop: 01/31/20 14:29 Last Admin: 01/31/20 13:20 Dose: 56 mls/hr Ketotifen Fumarate (Ketotifen 0.025% Ophth Soln) 0 ml EYEBOTH BID [facility] Last Admin: 01/31/20 08:51 Dose: 1 drop Levothyroxine Sodium (Levothyroxine) 112 mcg PO ACBREAKFAST [facility] Last Admin: 04/28/20 08:55 Dose: 112 mcg Lisinopril (Prinivil) 20 mg PO DAILY [facility] Last Admin: 01/31/20 08:55 Dose: 20 mg Lorazepam (Ativan) 0.5 mg IV Q4H PRN PRN Reason: Nausea/Vomiting Ondansetron HCl (Zofran) 4 mg IV Q4H PRN PRN Reason: Nausea/Vomiting Oxybutynin Chloride (Oxybutynin) 5 mg PO BID [facility] Last Admin: 01/31/20 08:55 Dose: 5 mg Pantoprazole Sodium (Protonix) 40 mg PO ACBREAKFAST [facility] Last Admin: 01/31/20 08:55 Dose: 40 mg Sodium Chloride (Saline Flush) 10 ml FLUSH ASDIRECTED PRN PRN Reason: Keep Vein Open Last Admin: 01/31/20 00:01 Dose: 10 ml Discontinued Medications Albuterol (Ventolin Hfa) 0 gm INH Q4H [facility] Last Admin: 01/31/20 06:23 Dose: Not Given Lactated Ringer's (Ringers, Lactated) 1,000 mls @ 999 mls/hr IV BOLUS ONE Stop: 01/31/20 00:39 Last Admin: 01/31/20 00:00 Dose: 999 mls/hr Potassium Chloride 20 meq/ (Premix) 100 mls @ 50 mls/hr IV ONETIME ONE Stop: 01/31/20 02:21 Last Admin: 01/31/20 00:41 Dose: 50 mls/hr Lactated Ringer's (Ringers, Lactated) 1,000 mls @ 125 mls/hr IV ASDIRECTED [facility] Last Admin: 01/31/20 10:39 Dose: 125 mls/hr Potassium Chloride 20 meq/ (Premix) 100 mls @ 50 mls/hr IV ONETIME ONE Stop: 01/31/20 03:41 Last Admin: 01/31/20 02:52 Dose: 50 mls/hr Lorazepam (Ativan) 0.5 mg IVPUSH ONETIME ONE Stop: 01/31/20 00:26 Last Admin: 01/31/20 00:41 Dose: 0.5 mg Lorazepam (Ativan) 0.5 mg IV Q6H PRN PRN Reason: Nausea/Vomiting Last Admin: 01/31/20 11:23 Dose: 0.5 mg Lorazepam (Ativan) 1 mg PO Q6H PRN PRN Reason: Anxiety Ondansetron HCl (Zofran) 4 mg IVPUSH ONETIME ONE Stop: 01/31/20 00:21 Last Admin: 01/31/20 00:41 Dose: 4 mg Potassium Chloride (Klor-Con M20) 40 meq PO ONETIME ONE Stop: 01/31/20 10:01 Last Admin: 01/31/20 11:28 Dose: 40 meq - Exam Quality Assessment: DVT Prophylaxis General: Alert, Oriented, Cooperative, Mild Distress Lungs: Clear to Auscultation, Normal Respiratory Effort Cardiovascular: Regular Rate, Regular Rhythm, No Murmurs GI/Abdominal Exam: Soft, No Organomegaly, Tender. No: Distended, Guarding, Rigid, Rebound Extremities: Non-Tender, No Pedal Edema Skin: Warm, Dry Psy/Mental Status: Anxious Sepsis Event Note - Evaluation Sepsis Screening Result: No Definite Risk - Focused Exam Vital Signs: Vital Signs Temp Pulse Resp BP BP Pulse Ox 01/31/20 12:42 98.2 F 92 14 133/88 96 01/31/20 09:00 98 F 92 16 125/85 97 01/31/20 08:55 125/85 01/31/20 04:00 92 16 133/90 01/31/20 03:31 91 170/117 H 01/31/20 01:45 96.8 F L 90 16 165/103 H 98 Date Exam was Performed: 01/31/20 Time Exam was Performed: 13:32 - Problem List Review Problem List Initiated/Reviewed/Updated: Yes - My Orders Last 24 Hours: My Active Orders 01/31/20 10:30 Potassium Chloride 20 meq Lidocaine 1% [Xylocaine 1%] 2 ml Sodium Chloride 0.9 % [Normal Saline] 100 ml IV Q2H 01/31/20 13:29 Convert IV to Saline Lock [OM.PC] Routine 01/31/20 13:31 LORazepam [Ativan] 0.5 mg IV Q4H PRN 01/31/20 17:00 POTASSIUM,K [CHEM] Stat 01/31/20 Lunch GI Soft Low Fiber [Soft Diet] [DIET] 02/01/20 05:00 BASIC METABOLIC PANEL,BMP [CHEM] Timed - Plan Plan:: ASSESSMENT AND PLAN HYPOKALEMIA -IV and oral potassium replacement -Recheck potassium later this afternoon and in a.m. ANXIETY-this is been a longstanding problem for her but significantly worse since her recent surgery -Lorazepam 0.5 mg IV every 4 hours as needed for anxiety and/or nausea -20 mg p.o. daily -Outpatient psychology referral follow-up with primary care STATUS POST RECENT ANA FUNDOPLICATION-no evidence of significant complications from surgery noted thus far -Soft low residue diet MAINTENANCE ISSUES -DVT prophylaxis; Lovenox 40 mg subcu daily -GI prophylaxis; not indicated -Crump catheter; not indicated -Nutrition; soft low residue diet -Nicotine dependence; not required CODE STATUS-FULL CODE ADMISSION STATUS-this patient will be admitted to observation status, expect no more than a one night hospital stay for evaluation and management of problems as outlined above. DISPOSITION-anticipate discharge to home after the hospital stay. PRIMARY CARE PROVIDER-Tasha Wynn
[2020-01-31] MEDS ORDERED: Enoxaparin 40 MG/0.4 ML Syringe SUBCUT SCH (16:00)
[2020-02-01] MEDS: Citalopram 20 MG Tab PO SCH (08:21)
[2020-02-01] MEDS: Oxybutynin 5 MG Tab PO SCH (08:21)
[2020-02-01] MEDS: Levothyroxine 112 MCG Tab PO SCH (08:21)
[2020-02-01] MEDS: Lisinopril 20 MG Tab PO SCH (08:21)
[2020-02-01] MEDS: Pantoprazole 40 MG Tab.CR PO SCH (08:21)
[2020-02-01] MEDS: Ketotifen 0.025% Ophth Soln 5 ML Bottle EYEBOTH SCH (08:22)
[2020-02-01] MEDS ORDERED: Potassium Chloride 20 MEQ Tab.ER PO ONE (09:00)
--- NOTE | 2020-02-01 12:43 | PCM.DCSUM1 ---
Discharge Summary - Hospital Course Brief History: Ms. Looney is a 59-year-old woman who was admitted through the emergency department with weakness, dehydration, and hypokalemia. - Discharge Data Discharge Date: 02/01/20 Discharge Disposition: Home, Self-Care 01 Condition: Stable - Referral to Home Health Primary Care Physician: PCP None - Discharge Diagnosis/Problem(s) (1) Hypokalemia SNOMED Code(s): 66982361 ICD Code: E87.6 - HYPOKALEMIA Status: Acute Current Visit: Yes (2) Anxiety SNOMED Code(s): 98048135 ICD Code: F41.9 - ANXIETY DISORDER, UNSPECIFIED Status: Acute Current Visit: Yes (3) Weakness SNOMED Code(s): 23714948 ICD Code: R53.1 - WEAKNESS Status: Acute Current Visit: Yes - Patient Summary/Data Hospital Course: Ms. Looney is a 59-year-old woman who was admitted to observation status through the emergency department with dehydration, hypokalemia, and anxiety. She underwent a Corinna fundoplication last week and has had difficulty eating and getting liquids down since surgery. She readily admits that she has been extremely anxious about eating and this is complicated her recovery. She is received IV potassium replacement through the night and her potassium this morning is improved at 3.1, but still low. She continues to feel somewhat nauseated and very anxious. During hospitalization she was given IV and oral potassium replacement, by the time of discharge potassium was close to desired range. She will be discharged home with potassium supplement 20 mEq twice daily. She was started on her Celexa during hospitalization and was given limited amount of lorazepam at the time of discharge to use for her anxiety. Follow-up appointment has already been scheduled with Dr. Helm. Follow-up appointment will be scheduled with her primary care provider within 1 week. Follow-up BMP will be obtained on Thursday, February 05. - Patient Instructions Diet: Full Liquid Diet Activity: As Tolerated Other/Special Instructions: Please schedule follow-up appointment with primary care provider within 1 week. BMP should be obtained on Thursday, February 05. Keep previously scheduled appointment with Dr. Helm. - Discharge Plan *PRESCRIPTION DRUG MONITORING PROGRAM REVIEWED*: Not Applicable *COPY OF PRESCRIPTION DRUG MONITORING REPORT IN PATIENT ALBERTO: Not Applicable Prescriptions/Med Rec: LORazepam [Ativan] 0.5 mg PO Q4H PRN #16 tablet PRN Reason: Anxiety Potassium Chloride 20 meq PO BID #60 tablet.er Home Medications: Home Meds Albuterol Sulfate [Albuterol Sulfate Hfa] 2 puff INH Q4H PRN 01/25/20 [History] Citalopram [Citalopram HBr] 20 mg PO DAILY 01/25/20 [History] Ketotifen Fumarate [Zaditor] 1 drop OP BID 01/25/20 [History] LORazepam [Lorazepam] 1 mg PO Q6H PRN 01/25/20 [History] Levothyroxine 112 mg PO DAILY 01/25/20 [History] Omeprazole 40 mg PO DAILY 01/25/20 [History] Oxybutynin 5 mg PO BID 01/25/20 [History] lisinopriL [Lisinopril] 20 mg PO DAILY 01/25/20 [History] LORazepam [Ativan] 0.5 mg PO Q4H PRN #16 tablet 02/01/20 [Rx] Potassium Chloride 20 meq PO BID #60 tablet.er 02/01/20 [Rx] Referrals: Tasha Wynn PA [Physician Emr Specialist] - 02/06/20 11:00 am (Please arrive at 1045 AM to register for you Lab draw and appointment. Lab draw at [address]ino appointment at 1130 AM) Heladio Guillen [Advanced RN Practitioner] - 02/07/20 2:00 pm (Your appointment with Heladio Guillen will be a virtual appointment. Please contact clinic if you need assistance with virtual appointment.) Mike Helm MD [Physician] - 02/08/20 10:00 am - Discharge Summary/Plan Comment DC Time >30 min.: No - Patient Data Vitals - Most Recent: Last Vital Signs Temp 96.7 F L 02/01/20 12:13 Pulse 79 02/01/20 12:13 Resp 16 02/01/20 12:13 BP 108/80 02/01/20 12:13 Pulse Ox 97 02/01/20 12:13 Weight - Most Recent: 215 lb I&O - Last 24 hours: Intake & Output 01/31/20 02/01/20 02/01/20 22:59 06:59 14:59 Intake Total 1630 100 120 Balance 1630 100 120 Lab Results - Last 24 hrs: Laboratory Results - last 24 hr 01/31/20 02/01/20 Range/Units 16:47 05:49 Sodium 142 (140-148) mmol/L Potassium 3.6 3.2 L (3.6-5.2) mmol/L Chloride 105 (100-108) mmol/L Carbon Dioxide 28 (21-32) mmol/L Anion Gap 12.2 (5.0-14.0) mmol/L BUN 10 (7-18) mg/dL Creatinine 0.8 (0.6-1.0) mg/dL Est Cr Clr Drug Dosing 61.86 mL/min Estimated GFR (MDRD) > 60 (>60) Glucose 78 (74-106) mg/dL Calcium 7.7 L (8.5-10.1) mg/dL Med Orders - Current: Current Medications Albuterol (Ventolin Hfa) 0 gm INH Q4H PRN PRN Reason: Shortness of Breath Citalopram Hydrobromide (Celexa) 20 mg PO DAILY [facility] Last Admin: 02/01/20 08:21 Dose: 20 mg Enoxaparin Sodium (Lovenox) 40 mg SUBCUT Q24H [facility] Last Admin: 01/31/20 17:17 Dose: 40 mg Ketotifen Fumarate (Ketotifen 0.025% Ophth Soln) 0 ml EYEBOTH BID [facility] Last Admin: 02/01/20 08:22 Dose: 2 drop Levothyroxine Sodium (Levothyroxine) 112 mcg PO ACBREAKFAST [facility] Last Admin: 02/01/20 08:21 Dose: 112 mcg Lisinopril (Prinivil) 20 mg PO DAILY [facility] Last Admin: 02/01/20 08:21 Dose: 20 mg Lorazepam (Ativan) 0.5 mg IV Q4H PRN PRN Reason: Nausea/Vomiting Ondansetron HCl (Zofran) 4 mg IV Q4H PRN PRN Reason: Nausea/Vomiting Oxybutynin Chloride (Oxybutynin) 5 mg PO BID [facility] Last Admin: 02/01/20 08:21 Dose: 5 mg Pantoprazole Sodium (Protonix) 40 mg PO ACBREAKFAST [facility] Last Admin: 02/01/20 08:21 Dose: 40 mg Sodium Chloride (Saline Flush) 10 ml FLUSH ASDIRECTED PRN PRN Reason: Keep Vein Open Last Admin: 01/31/20 00:01 Dose: 10 ml Discontinued Medications Albuterol (Ventolin Hfa) 0 gm INH Q4H [facility] Last Admin: 01/31/20 06:23 Dose: Not Given Lactated Ringer's (Ringers, Lactated) 1,000 mls @ 999 mls/hr IV BOLUS ONE Stop: 01/31/20 00:39 Last Admin: 01/31/20 00:00 Dose: 999 mls/hr Potassium Chloride 20 meq/ (Premix) 100 mls @ 50 mls/hr IV ONETIME ONE Stop: 01/31/20 02:21 Last Admin: 01/31/20 00:41 Dose: 50 mls/hr Lactated Ringer's (Ringers, Lactated) 1,000 mls @ 125 mls/hr IV ASDIRECTED [facility] Last Admin: 01/31/20 10:39 Dose: 125 mls/hr Potassium Chloride 20 meq/ (Premix) 100 mls @ 50 mls/hr IV ONETIME ONE Stop: 01/31/20 03:41 Last Admin: 01/31/20 02:52 Dose: 50 mls/hr Potassium Chloride 20 meq/Lidocaine HCl 2 ml/ Sodium Chloride 112 mls @ 56 mls/ hr IV Q2H [facility] Stop: 01/31/20 14:29 Last Admin: 01/31/20 13:20 Dose: 56 mls/hr Lorazepam (Ativan) 0.5 mg IVPUSH ONETIME ONE Stop: 01/31/20 00:26 Last Admin: 01/31/20 00:41 Dose: 0.5 mg Lorazepam (Ativan) 0.5 mg IV Q6H PRN PRN Reason: Nausea/Vomiting Last Admin: 01/31/20 11:23 Dose: 0.5 mg Lorazepam (Ativan) 1 mg PO Q6H PRN PRN Reason: Anxiety Ondansetron HCl (Zofran) 4 mg IVPUSH ONETIME ONE Stop: 01/31/20 00:21 Last Admin: 01/31/20 00:41 Dose: 4 mg Potassium Chloride (Klor-Con M20) 40 meq PO ONETIME ONE Stop: 01/31/20 10:01 Last Admin: 01/31/20 11:28 Dose: 40 meq Potassium Chloride (Klor-Con M20) 40 meq PO ONETIME ONE Stop: 01/31/20 17:46 Last Admin: 01/31/20 17:52 Dose: 40 meq Potassium Chloride (Klor-Con M20) 40 meq PO ONETIME ONE Stop: 02/01/20 09:01 Last Admin: 02/01/20 08:27 Dose: 40 meq - Exam General: Reports: Alert, Oriented, Cooperative, No Acute Distress Lungs: Reports: Clear to Auscultation, Normal Respiratory Effort Cardiovascular: Reports: Regular Rate, Regular Rhythm, No Murmurs GI/Abdominal Exam: Soft, Non-Tender, No Organomegaly, No Distention Extremities: Non-Tender, No Pedal Edema
== END 2020-02-01 14:31 | disposition home or self-care (01) ==
LOC: JP.ED 22:40 → JP.ICU 01-31 01:43 → JP.MS 01-31 13:25
PROVIDERS: ADMIT Family Medicine; ATTEND Hospitalist
DX: E87.6 Hypokalemia (principal); F41.9 Anxiety disorder, unspecified; I10 Essential (primary) hypertension; E86.0 Dehydration; E03.9 Hypothyroidism, unspecified; Z79.890 Hormone replacement therapy; Z79.899 Other long term (current) drug therapy; Z98.890 Other specified postprocedural states
CPT/HCPCS: 36415; 74018; 80048; 80053; 83690; 84132; 85025; 96361; 96365; 96375; 99285; A9270; J1650; J2001; J2060; J2405; J3480; J7050; J7120; 96366; 96372; 96376; G0378

== ENCOUNTER 2020-02-05 01:26 | Emergency (ER) | payer MEDICAID ==
--- NOTE | 2020-02-05 02:00 | EDM.PDOC ---
ED HPI GENERAL MEDICAL PROBLEM - General Chief Complaint: Upper Extremity Injury/Pain Stated Complaint: LEFT SHOULDER PAIN Time Seen by Provider: 02/05/20 01:35 Source of Information: Reports: Patient, Family History Limitations: Reports: No Limitations - History of Present Illness INITIAL COMMENTS - FREE TEXT/NARRATIVE: 59-year-old female with a history of anxiety, reflux, and hypokalemia awoke tonight with some numbness around her right face and some intermittent left shoulder discomfort that lasts a few minutes and goes away. No shortness of breath, nausea or vomiting, diaphoresis, but she does have some chest pain that radiates into the left upper chest during the shoulder pain. She called the nurse hotline and they recommended she call an ambulance but she decided to have her drive her in. She just had a surgery, Corinna procedure 1 week ago. 1 month ago she was hospitalized with significant hypokalemia. She is currently on a tapering prednisone dose postsurgery but is unable to take the medication because it "sticks". Onset: Unknown/Unsure Location: Reports: Chest (Anterior left chest and shoulder) Associated Symptoms: Reports: Other (Paresthesia of the right cheek which has resolved) Left Upper Shoulder Pain Score (Numeric/FACES): 3 - Related Data Allergies Allergy/AdvReac Type Severity Reaction Status Date / Time No Known Allergies Allergy Verified 02/05/20 01:34 Home Meds: Home Meds Albuterol Sulfate [Albuterol Sulfate Hfa] 2 puff INH Q4H PRN 01/25/20 [History] Citalopram [Citalopram HBr] 20 mg PO DAILY 01/25/20 [History] Ketotifen Fumarate [Zaditor] 1 drop OP BID 01/25/20 [History] LORazepam [Lorazepam] 1 mg PO Q6H PRN 01/25/20 [History] Levothyroxine 112 mg PO DAILY 01/25/20 [History] Omeprazole 40 mg PO DAILY 01/25/20 [History] Oxybutynin 5 mg PO BID 01/25/20 [History] lisinopriL [Lisinopril] 20 mg PO DAILY 01/25/20 [History] LORazepam [Ativan] 0.5 mg PO Q4H PRN #16 tablet 02/01/20 [Rx] Potassium Chloride 20 meq PO BID #60 tablet.er 02/01/20 [Rx] Past Medical History HEENT History: Reports: Impaired Vision Cardiovascular History: Reports: Hypertension Respiratory History: Reports: Asthma, Bronchitis, Recurrent Gastrointestinal History: Reports: GERD Genitourinary History: Reports: Urinary Incontinence [employer] History: Reports: Musculoskeletal History: Reports: Osteoarthritis, Other (See Below) Other Musculoskeletal History: cubital tunnel Psychiatric History: Reports: Anxiety, Depression Endocrine/Metabolic History: Reports: Hypothyroidism - Infectious Disease History Infectious Disease History: Reports: Chicken Pox, Measles, Mumps - Past Surgical History Head Surgeries/Procedures: Reports: None HEENT Surgical History: Reports: None Cardiovascular Surgical History: Reports: None GI Surgical History: Reports: Cholecystectomy, Colonoscopy, EGD, Other (See Below) Other GI Surgeries/Procedures: odalys Female Surgical History: Reports: Tubal Ligation Endocrine Surgical History: Reports: None Musculoskeletal Surgical History: Reports: Carpal Tunnel Dermatological Surgical History: Reports: None Social & Family History - Family History Family Medical History: Noncontributory Cardiac: Reports: CO, Pacemaker - Tobacco Use Smoking Status *Q: Never Smoker - Caffeine Use Caffeine Use: Reports: None - Recreational Drug Use Recreational Drug Use: No Review of Systems - Review of Systems Review Of Systems: See Below Constitutional: Denies: Fever Eyes: Denies: Inflammation, Vision Change Ears: Reports: No Symptoms Mouth/Throat: Reports: Other (Some numbness around the right cheek) Respiratory: Reports: Wheezing (History of asthma with occasional wheezing) Cardiovascular: Reports: Chest Pain (Left anterior chest and shoulder) GI/Abdominal: Reports: Nausea Skin: Reports: Bruising (Several bruises on her arms from recent surgeries and blood draws) Neurological: Reports: Paresthesia (Right face) Psychiatric: Reports: Anxiety ED EXAM, GENERAL - Physical Exam Exam: See Below Exam Limited By: No Limitations General Appearance: Alert, No Apparent Distress Eye Exam: Bilateral Eye: Normal Inspection Throat/Mouth: Normal Inspection Head: Atraumatic Neck: Supple, Non-Tender Respiratory/Chest: No Respiratory Distress, Wheezing (She has 1 small area of expiratory wheezing in the left upper lobe posteriorly), Other (I cannot reproduce tenderness with palpation of the shoulder or chest wall) Cardiovascular: Regular Rate, Rhythm. No: Extra Beats GI/Abdominal: Soft, Non-Tender Extremities: Normal Inspection Neurological: Alert, Oriented Psychiatric: Anxious Skin Exam: Warm, Dry Course - Vital Signs Last Recorded V/S: Last Vital Signs Temp 97.6 F 02/05/20 01:39 Pulse 95 02/05/20 01:39 Resp 16 02/05/20 01:39 BP 132/89 02/05/20 01:39 Pulse Ox 96 02/05/20 01:39 - Orders/Labs/Meds Labs: Laboratory Tests 02/05/20 02/05/20 02/05/20 Range/Units 01:57 01:57 01:57 WBC 9.5 (4.5-11.0) K/uL RBC 5.31 (3.30-5.50) M/uL Hgb 14.8 (12.0-15.0) g/dL Hct 45.4 (36.0-48.0) % MCV 86 (80-98) fL MCH 28 (27-31) pg MCHC 33 (32-36) % Plt Count 335 (150-400) K/uL Neut % (Auto) 64 (36-66) % Lymph % (Auto) 26 (24-44) % [place] % (Auto) 6 (2-6) % Eos % (Auto) 3 (2-4) % Baso % (Auto) 0 (0-1) % Sodium 137 L (140-148) mmol/L Potassium 3.6 (3.6-5.2) mmol/L Chloride 100 (100-108) mmol/L Carbon Dioxide 19 L (21-32) mmol/L Anion Gap 21.6 H (5.0-14.0) mmol/L BUN 11 (7-18) mg/dL Creatinine 0.9 (0.6-1.0) mg/dL Est Cr Clr Drug Dosing 52.57 mL/min Estimated GFR (MDRD) > 60 (>60) Glucose 75 (74-106) mg/dL Calcium 9.1 D (8.5-10.1) mg/dL Troponin I < 0.017 (0.000-0.056) ng/mL Meds: Medications Discontinued Medications Generic Name Dose Route Start Last Admin Trade Name Freq PRN Reason Stop Dose Admin Methylprednisolone Sodium Succinate 125 mg 02/05/20 02:27 02/05/20 02:33 Solu-Medrol IM 02/05/20 02:28 125 mg ONETIME ONE Administration - Re-Assessments/Exams Free Text/Narrative Re-Assessment/Exam: 02/05/20 02:02 CBC, BMP and troponin were obtained. If labs return normal should be given 1 dose of Solu-Medrol IM. 02/05/20 02:26 Labs returned reassuring, CBC was normal and troponin was 0. She was given 125 mg of IM Solu-Medrol, and will call Dr. Helm on Thursday to discuss whether she can change the oral steroid to liquid. Departure - Departure Time of Disposition: 02:36 Disposition: Home, Self-Care 01 Clinical Impression: Atypical chest pain - Discharge Information Instructions: Nonspecific Chest Pain, Adult Referrals: Tasha Wynn PA [Primary Care Provider] - Forms: ED Department Discharge Care Plan Goals: Call the surgical department on Thursday to see if you can get your prescription changed to a liquid, or if you even have to continue taking the medication. You can return sooner if worsening such as difficulty breathing or increased pain. Sepsis Event Note - Evaluation Sepsis Screening Result: No Definite Risk - Focused Exam Vital Signs: Vital Signs Temp Pulse Resp BP Pulse Ox 02/05/20 01:39 97.6 F 95 16 132/89 96 Date Exam was Performed: 02/05/20 Time Exam was Performed: 06:54
[2020-02-05] MEDS ORDERED: methylPREDNISolone Sodium Succinate 125 MG/2 ML SDV IM ONE (02:27)
== END 2020-02-05 02:42 | disposition home or self-care (01) ==
LOC: JP.ED 01:26
DX: R07.89 Other chest pain (principal); I10 Essential (primary) hypertension; J45.909 Unspecified asthma, uncomplicated; K21.9 Gastro-esophageal reflux disease without esophagitis; F32.9 Major depressive disorder, single episode, unspecified; E03.9 Hypothyroidism, unspecified; Z79.899 Other long term (current) drug therapy
CPT/HCPCS: 36415; 80048; 84484; 85025; 96372; 99284; J2930

== ENCOUNTER 2020-02-13 20:56 | Emergency (ER) | payer MEDICAID ==
[2020-02-13] MEDS ORDERED: Prochlorperazine 25 MG Supp RECTAL ONE ×2 (22:05→23:26)
--- NOTE | 2020-02-13 22:06 | EDM.PDOC ---
ED HPI GENERAL MEDICAL PROBLEM - General Chief Complaint: General Stated Complaint: WEAK Time Seen by Provider: 02/13/20 21:50 Source of Information: Reports: Patient, Family History Limitations: Reports: No Limitations - History of Present Illness INITIAL COMMENTS - FREE TEXT/NARRATIVE: 59-year-old female who is having an ongoing problem with swallowing along with persistent retching and dry heaves after a Corinna procedure several weeks ago. She did receive some IV fluids a couple of days ago, and has an appointment with Dr. Helm on Thursday, but today she feels lightheaded and weak and does not feel like she is holding down much fluids. She is not febrile, she had a normal bowel movement today and is not having a lot of pain. She was prescribed some Reglan pills but cannot swallow them. No shortness of breath. She is concerned about her "potassium and liver function". Onset: Gradual Duration: Day(s): (Ongoing for several days) Associated Symptoms: Reports: Rash (She has some type of a blistering erythematous reaction from the Steri-Strips on her lower abdomen) RUQ Pain Score (Numeric/FACES): 3 - Related Data Allergies Allergy/AdvReac Type Severity Reaction Status Date / Time No Known Allergies Allergy Verified 02/13/20 21:47 Home Meds: Home Meds Albuterol Sulfate [Albuterol Sulfate Hfa] 2 puff INH Q4H PRN 01/25/20 [History] Citalopram [Citalopram HBr] 20 mg PO DAILY 01/25/20 [History] Ketotifen Fumarate [Zaditor] 1 drop OP BID 01/25/20 [History] LORazepam [Lorazepam] 1 mg PO Q6H PRN 01/25/20 [History] Levothyroxine 112 mg PO DAILY 01/25/20 [History] Omeprazole 40 mg PO DAILY 01/25/20 [History] lisinopriL [Lisinopril] 20 mg PO DAILY 01/25/20 [History] LORazepam [Ativan] 0.5 mg PO Q4H PRN #16 tablet 02/01/20 [Rx] Potassium Chloride 20 meq PO BID #60 tablet.er 02/01/20 [Rx] Past Medical History HEENT History: Reports: Impaired Vision Cardiovascular History: Reports: Hypertension Respiratory History: Reports: Asthma, Bronchitis, Recurrent Gastrointestinal History: Reports: GERD Genitourinary History: Reports: Urinary Incontinence 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: Musculoskeletal History: Reports: Osteoarthritis, Other (See Below) Other Musculoskeletal History: cubital tunnel Psychiatric History: Reports: Anxiety, Depression Endocrine/Metabolic History: Reports: Hypothyroidism - Infectious Disease History Infectious Disease History: Reports: Chicken Pox, Measles, Mumps - Past Surgical History Head Surgeries/Procedures: Reports: None HEENT Surgical History: Reports: None Cardiovascular Surgical History: Reports: None GI Surgical History: Reports: Cholecystectomy, Colonoscopy, EGD, Corinna Fundoplication Female Surgical History: Reports: Tubal Ligation Endocrine Surgical History: Reports: None Musculoskeletal Surgical History: Reports: Carpal Tunnel Dermatological Surgical History: Reports: None Social & Family History - Family History Family Medical History: Noncontributory Cardiac: Reports: [place], Pacemaker - Tobacco Use Smoking Status *Q: Never Smoker - Caffeine Use Caffeine Use: Reports: None - Recreational Drug Use Recreational Drug Use: No ED ROS GENERAL - Review of Systems Review Of Systems: See Below Constitutional: Reports: Malaise, Decreased Appetite. Denies: Fever, Chills HEENT: Reports: No Symptoms Respiratory: Denies: Shortness of Breath Cardiovascular: Denies: Chest Pain GI/Abdominal: Reports: Abdominal Pain (Some mild epigastric and chest discomfort with retching), Nausea, Vomiting Skin: Reports: Other (Small area of blistering rash on her lower abdomen) Neurological: Reports: Dizziness, Weakness ED EXAM, GENERAL - Physical Exam Exam: See Below Exam Limited By: No Limitations General Appearance: Alert, Mild Distress, Other (Is holding an emesis bag and looks uncomfortable) Eye Exam: Bilateral Eye: Normal Inspection (No jaundice) Throat/Mouth: Normal Inspection (Normal hydration) Respiratory/Chest: No Respiratory Distress, Lungs Clear Cardiovascular: Regular Rate, Rhythm GI/Abdominal: Normal Bowel Sounds, Soft, Non-Tender Neurological: Alert, Oriented Psychiatric: Normal Affect, Normal Mood Skin Exam: Warm, Dry, Other (She does have a small amount of erythema with a very small clear blister near one of her surgical incisions where there were recently some Steri-Strips) Course - Vital Signs Last Recorded V/S: Last Vital Signs Temp 97.5 F 02/13/20 21:46 Pulse 85 02/13/20 21:46 Resp 16 02/13/20 21:46 BP 147/95 H 02/13/20 21:46 Pulse Ox 100 02/13/20 21:46 - Orders/Labs/Meds Labs: Laboratory Tests 02/13/20 02/13/20 Range/Units 21:15 22:15 WBC 8.5 (4.5-11.0) K/uL RBC 5.47 (3.30-5.50) M/uL Hgb 15.1 H (12.0-15.0) g/dL Hct 46.3 (36.0-48.0) % MCV 85 (80-98) fL MCH 28 (27-31) pg MCHC 33 (32-36) % Plt Count 350 (150-400) K/uL Neut % (Auto) 72 H (36-66) % Lymph % (Auto) 20 L (24-44) % [place] % (Auto) 6 (2-6) % Eos % (Auto) 1 L (2-4) % Baso % (Auto) 0 (0-1) % Sodium 139 L (140-148) mmol/L Potassium 3.1 L (3.6-5.2) mmol/L Chloride 101 (100-108) mmol/L Carbon Dioxide 22 (21-32) mmol/L Anion Gap 19.1 H (5.0-14.0) mmol/L BUN 12 (7-18) mg/dL Creatinine 0.8 (0.6-1.0) mg/dL Est Cr Clr Drug Dosing 59.15 mL/min Estimated GFR (MDRD) > 60 (>60) Glucose 88 (74-106) mg/dL Calcium 8.5 (8.5-10.1) mg/dL Total Bilirubin 0.6 (0.2-1.0) mg/dL AST 41 H (15-37) U/L ALT 116 H (12-78) U/L Alkaline Phosphatase 109 (46-116) U/L Total Protein 7.6 (6.4-8.2) g/dL Albumin 3.1 L (3.4-5.0) g/dL Globulin 4.5 H (2.3-3.5) g/dL Albumin/Globulin Ratio 0.7 L (1.2-2.2) Meds: Medications Discontinued Medications Generic Name Dose Route Start Last Admin Trade Name Freq PRN Reason Stop Dose Admin Sodium Chloride 1,000 mls @ 1,000 mls/hr 02/13/20 22:15 02/13/20 22:16 Normal Saline IV 1,000 mls/hr ASDIRECTED BLAYNE Administration Metoclopramide HCl 5 mg 02/13/20 23:26 02/13/20 23:33 Reglan IVPUSH 02/13/20 23:27 5 mg ONETIME ONE Administration Prochlorperazine Maleate 25 mg 02/13/20 22:05 02/13/20 22:16 Compro RECTAL 02/13/20 22:06 25 mg ONETIME ONE Administration Prochlorperazine Maleate 25 mg 02/13/20 23:26 02/13/20 23:33 Compro RECTAL 02/13/20 23:27 25 mg ONETIME ONE Administration - Re-Assessments/Exams Free Text/Narrative Re-Assessment/Exam: 02/13/20 22:26 Reassured her that her vital signs look good. We will give her 1 L of normal saline, check a CBC and CMP and also give her 125 mg dose of Compazine rectally. By the time the labs are back and the fluid is in we should know if the Compazine has helped her. 02/13/20 23:26 CBC returned reassuring, hemoglobin is just slightly elevated. Liver functions are almost back to normal. At the time the fluids were done, she felt much better and still had some mild nausea but the dry heaving sensation was gone. She will be discharged with a second 25 mg Compazine to use rectally tomorrow morning. Potassium is still low at 3.1 so she was encouraged to continue trying to take her supplement. She will recheck with Dr. Helm on Thursday as scheduled, which is only about 36 hours from now. Departure - Departure Time of Disposition: 23:41 Disposition: Home, Self-Care 01 Clinical Impression: Hypokalemia, Weakness generalized Nausea & vomiting Qualifiers: Vomiting type: unspecified Vomiting Intractability: non-intractable Qualified Code(s): R11.2 - Nausea with vomiting, unspecified - Discharge Information Instructions: Nausea and Vomiting, Adult, [id number] Referrals: Tasha Wynn PA [Primary Care Provider] - Forms: ED Department Discharge Care Plan Goals: Repeat the Compazine suppository tomorrow morning if needed and continue to stay hydrated with frequent small amounts of water and try to take your medications as prescribed. Recheck with Dr. Helm on Thursday as scheduled, or return sooner if worsening or concerns. Sepsis Event Note - Evaluation Sepsis Screening Result: No Definite Risk - Focused Exam Vital Signs: Vital Signs Temp Pulse Resp BP Pulse Ox 02/13/20 21:46 97.5 F 85 16 147/95 H 100 02/13/20 21:38 97.5 F 85 16 147/95 H 100 Date Exam was Performed: 02/14/20 Time Exam was Performed: 01:58
[2020-02-13] MEDS ORDERED: Sodium Chloride 0.9% 1,000 ML IV SCH (22:15)
[2020-02-13] MEDS ORDERED: Metoclopramide 10 MG/2 ML SDV IVPUSH ONE (23:26)
== END 2020-02-13 23:50 | disposition home or self-care (01) ==
LOC: JP.ED 20:56
DX: E87.6 Hypokalemia (principal); R11.2 Nausea with vomiting, unspecified; I10 Essential (primary) hypertension; J45.909 Unspecified asthma, uncomplicated; K21.9 Gastro-esophageal reflux disease without esophagitis; F41.9 Anxiety disorder, unspecified; F32.9 Major depressive disorder, single episode, unspecified; E03.9 Hypothyroidism, unspecified; Z79.899 Other long term (current) drug therapy
CPT/HCPCS: 36415; 80053; 85025; 96361; 96374; 99284; A9270; J2765; J7030

== ENCOUNTER 2020-02-19 21:06 | Emergency (ER) | payer MEDICAID ==
[2020-02-19] MEDS ORDERED: Sodium Chloride 0.9% 10 ML Syringe FLUSH PRN (21:53)
[2020-02-19] MEDS ORDERED: Metoclopramide 10 MG/2 ML SDV IVPUSH ONE (21:54)
[2020-02-19] MEDS ORDERED: Scopolamine 1.5 MG Transdermal Patch TRDERM STA (21:54)
--- NOTE | 2020-02-19 21:56 | EDM.PDOC ---
ED HPI GENERAL MEDICAL PROBLEM - General Chief Complaint: Gastrointestinal Problem Stated Complaint: NAUSEA,DRY HEAVES Time Seen by Provider: 02/19/20 21:49 Source of Information: Reports: Patient, RN Notes Reviewed History Limitations: Reports: No Limitations - History of Present Illness INITIAL COMMENTS - FREE TEXT/NARRATIVE: 59-year-old female presents emergency department a complaint of nausea and vomiting, she recently underwent Corinna fundoplication on 11 January she has had difficulty postsurgically with nausea and vomiting. She is presents the emergency department today with unable to keep any liquid products down she has used combination Zofran and Compazine Zofran does not provide any relief Compazine only relief for a couple hours she does have a follow-up appointment with her primary surgeon this week. - Related Data Allergies Allergy/AdvReac Type Severity Reaction Status Date / Time No Known Allergies Allergy Verified 02/19/20 21:34 Home Meds: Home Meds Albuterol Sulfate [Albuterol Sulfate Hfa] 2 puff INH Q4H PRN 01/25/20 [History] Citalopram [Citalopram HBr] 20 mg PO DAILY 01/25/20 [History] Ketotifen Fumarate [Zaditor] 1 drop OP BID 01/25/20 [History] LORazepam [Lorazepam] 1 mg PO Q6H PRN 01/25/20 [History] Levothyroxine 112 mg PO DAILY 01/25/20 [History] Omeprazole 40 mg PO DAILY 01/25/20 [History] lisinopriL [Lisinopril] 20 mg PO DAILY 01/25/20 [History] Potassium Chloride 20 meq PO BID #60 tablet.er 02/01/20 [Rx] Hyoscyamine [Hyomax-SL] 1 tab SL Q4H PRN 02/19/20 [History] Prochlorperazine [Compazine] 1 tab RECTAL Q8H PRN 02/19/20 [History] Past Medical History HEENT History: Reports: Impaired Vision Cardiovascular History: Reports: Hypertension Respiratory History: Reports: Asthma, Bronchitis, Recurrent Gastrointestinal History: Reports: GERD Genitourinary History: Reports: Urinary Incontinence 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: Musculoskeletal History: Reports: Osteoarthritis, Other (See Below) Other Musculoskeletal History: cubital tunnel Psychiatric History: Reports: Anxiety, Depression Endocrine/Metabolic History: Reports: Hypothyroidism - Infectious Disease History Infectious Disease History: Reports: Chicken Pox, Measles, Mumps, Shingles - Past Surgical History Head Surgeries/Procedures: Reports: None HEENT Surgical History: Reports: None Cardiovascular Surgical History: Reports: None GI Surgical History: Reports: Cholecystectomy, Colonoscopy, EGD, Corinna Fundoplication, Other (See Below) Other GI Surgeries/Procedures: hiatal hernia 01/28/2019 Female Surgical History: Reports: Tubal Ligation Endocrine Surgical History: Reports: None Musculoskeletal Surgical History: Reports: Carpal Tunnel Dermatological Surgical History: Reports: None Social & Family History - Family History Family Medical History: Noncontributory Cardiac: Reports: [place], Pacemaker - Tobacco Use Smoking Status *Q: Never Smoker - Caffeine Use Caffeine Use: Reports: None - Recreational Drug Use Recreational Drug Use: No ED ROS GENERAL - Review of Systems Review Of Systems: See Below Constitutional: Denies: Fever, Chills HEENT: Reports: No Symptoms Respiratory: Reports: No Symptoms Cardiovascular: Reports: No Symptoms GI/Abdominal: Reports: Nausea, Vomiting. Denies: Abdominal Pain : Reports: No Symptoms ED EXAM, GI/ABD - Physical Exam Exam: See Below Exam Limited By: No Limitations General Appearance: Alert, WD/WN, No Apparent Distress Respiratory/Chest: No Respiratory Distress, Lungs Clear, Normal Breath Sounds, No Accessory Muscle Use, Chest Non-Tender Cardiovascular: Regular Rate, Rhythm, No Murmur GI/Abdominal Exam: Soft, Non-Tender Course - Vital Signs Last Recorded V/S: Last Vital Signs Temp 97.4 F 02/19/20 21:39 Pulse 70 02/19/20 22:46 Resp 14 02/19/20 22:46 BP 132/79 02/19/20 22:46 Pulse Ox 99 02/19/20 22:46 - Orders/Labs/Meds Orders: Active Orders 24 hr Category Date Time Status Peripheral IV Care [RC] . DIRECTED Care 02/19/20 21:54 Active Lactated Ringers [Ringers, Lactated] 1,000 ml Med 02/19/20 22:00 Active IV ASDIRECTED Sodium Chloride 0.9% [Saline Flush] Med 02/19/20 21:53 Active 10 ml FLUSH ASDIRECTED PRN Peripheral IV Insertion Adult [OM.PC] Urgent Oth 02/19/20 21:53 Ordered Medication Orders Lactated Ringer's (Ringers, Lactated) 1,000 mls @ 999 mls/hr IV ASDIRECTED BLAYNE Last Admin: 02/19/20 22:11 Dose: 999 mls/hr Sodium Chloride (Saline Flush) 10 ml FLUSH ASDIRECTED PRN PRN Reason: Keep Vein Open Last Admin: 02/19/20 22:13 Dose: 10 ml Labs: Laboratory Tests 02/19/20 02/19/20 02/19/20 Range/Units 22:03 22:03 22:03 WBC 9.1 (4.5-11.0) K/uL RBC 5.40 (3.30-5.50) M/uL Hgb 14.9 (12.0-15.0) g/dL Hct 45.7 (36.0-48.0) % MCV 85 (80-98) fL MCH 28 (27-31) pg MCHC 33 (32-36) % Plt Count 336 (150-400) K/uL Neut % (Auto) 75 H (36-66) % Lymph % (Auto) 17 L (24-44) % [place] % (Auto) 7 H (2-6) % Eos % (Auto) 1 L (2-4) % Baso % (Auto) 0 (0-1) % Sodium 140 (140-148) mmol/L Potassium 3.3 L (3.6-5.2) mmol/L Chloride 100 (100-108) mmol/L Carbon Dioxide 23 (21-32) mmol/L Anion Gap 20.3 H (5.0-14.0) mmol/L BUN 13 (7-18) mg/dL Creatinine 0.9 (0.6-1.0) mg/dL Est Cr Clr Drug Dosing 52.57 mL/min Estimated GFR (MDRD) > 60 (>60) Glucose 96 (74-106) mg/dL Lactic Acid 1.0 (0.4-2.0) mmol/L Calcium 9.0 (8.5-10.1) mg/dL Total Bilirubin 0.7 (0.2-1.0) mg/dL AST 37 (15-37) U/L ALT 87 H (12-78) U/L Alkaline Phosphatase 115 (46-116) U/L Total Protein 8.0 (6.4-8.2) g/dL Albumin 3.6 (3.4-5.0) g/dL Globulin 4.4 H (2.3-3.5) g/dL Albumin/Globulin Ratio 0.8 L (1.2-2.2) Lipase 157 (73-393) U/L Meds: Medications Generic Name Dose Route Start Last Admin Trade Name Freq PRN Reason Stop Dose Admin Lactated Ringer's 1,000 mls @ 999 mls/hr 02/19/20 22:00 02/19/20 22:11 Ringers, Lactated IV 999 mls/hr ASDIRECTED BLAYNE Administration Sodium Chloride 10 ml 02/19/20 21:53 02/19/20 22:13 Saline Flush FLUSH 10 ml ASDIRECTED PRN Administration Keep Vein Open Discontinued Medications Generic Name Dose Route Start Last Admin Trade Name Freq PRN Reason Stop Dose Admin Metoclopramide HCl 10 mg 02/19/20 21:54 02/19/20 22:11 Reglan IVPUSH 02/19/20 21:55 10 mg ONETIME ONE Administration Scopolamine 1.5 mg 02/19/20 21:54 02/19/20 22:11 Transderm-Scop TRDERM 02/19/20 21:55 1.5 mg NOW STA Administration Departure - Departure Time of Disposition: 23:24 Disposition: Home, Self-Care 01 Condition: Fair Clinical Impression: Nausea & vomiting Qualifiers: Vomiting type: unspecified Vomiting Intractability: non-intractable Qualified Code(s): R11.2 - Nausea with vomiting, unspecified - Discharge Information Instructions: Nausea and Vomiting, Adult, [id number] Referrals: Tasha Wynn PA [Primary Care Provider] - Forms: ED Department Discharge Additional Instructions: Continue with your regular medications, please keep the scopolamine patch on for at least 72 hours, try and follow-up with your general surgeon this week, call or return to the emergency department worsening of symptoms Sepsis Event Note - Evaluation Sepsis Screening Result: No Definite Risk - Focused Exam Vital Signs: Vital Signs Temp Pulse Resp BP Pulse Ox 02/19/20 22:46 70 14 132/79 99 02/19/20 21:39 97.4 F 93 16 139/88 98 02/19/20 21:17 97.4 F 93 16 139/88 98 Date Exam was Performed: 02/19/20 Time Exam was Performed: 23:23 - My Orders Last 24 Hours: My Active Orders 02/19/20 21:53 Sodium Chloride 0.9% [Saline Flush] 10 ml FLUSH ASDIRECTED PRN Peripheral IV Insertion Adult [OM.PC] Urgent 02/19/20 21:54 Peripheral IV Care [RC] . DIRECTED 02/19/20 22:00 Lactated Ringers [Ringers, Lactated] 1,000 ml IV ASDIRECTED - Assessment/Plan Last 24 Hours: My Active Orders 02/19/20 21:53 Sodium Chloride 0.9% [Saline Flush] 10 ml FLUSH ASDIRECTED PRN Peripheral IV Insertion Adult [OM.PC] Urgent 02/19/20 21:54 Peripheral IV Care [RC] . DIRECTED 02/19/20 22:00 Lactated Ringers [Ringers, Lactated] 1,000 ml IV ASDIRECTED Plan: Assessment Nausea and vomiting secondary to complications of recent Corinna fundoplication Plan She had good improvement 1 L fluids Scopolamine patch and Reglan I did review lab work with her was unremarkable she is can follow-up with her surgeon this week for further evaluation
[2020-02-19] MEDS ORDERED: Lactated Ringers 1,000 ML IV SCH (22:00)
== END 2020-02-19 23:36 | disposition home or self-care (01) ==
LOC: JP.ED 21:06
DX: R11.2 Nausea with vomiting, unspecified (principal); I10 Essential (primary) hypertension; J45.909 Unspecified asthma, uncomplicated; K21.9 Gastro-esophageal reflux disease without esophagitis; F41.9 Anxiety disorder, unspecified; F32.9 Major depressive disorder, single episode, unspecified; E03.9 Hypothyroidism, unspecified; Z79.899 Other long term (current) drug therapy
CPT/HCPCS: 36415; 80053; 83605; 83690; 85025; 96361; 96374; 99284; A9270; J2765; J7120

== ENCOUNTER 2020-02-20 10:57 | Observation (INO) | payer MEDICAID ==
[2020-02-20] MEDS ORDERED: Calcium Carbonate 500 MG Tab.Chew PO PRN (11:24)
[2020-02-20] MEDS ORDERED: Acetaminophen 325 MG Tab PO PRN (11:24)
[2020-02-20] MEDS ORDERED: Acetaminophen 650 MG Supp RECTAL PRN (11:25)
[2020-02-20] MEDS ORDERED: Lactated Ringers 1,000 ML IV ONE (11:25)
[2020-02-20] MEDS: SCOPOLAMINE PATCH CHECK TOP SCH (11:38)
[2020-02-20] MEDS: Metoclopramide 10 MG/2 ML SDV IVPUSH SCH ×2 (11:40→18:08)
[2020-02-20] MEDS ORDERED: methylPREDNISolone Sodium Succinate 40 MG/1 ML SDV IVPUSH ONE (12:00)
[2020-02-20] MEDS: Potassium Chloride 20 MEQ, Lidocaine 1% 2 ML in Sodium Chloride 0.9% 100 ML IV SCH ×3 (13:21→18:45)
[2020-02-20] MEDS ORDERED: MVI, Adult with Vitamin K 10 ML, Magnesium Sulfate 2 GM, Folic Acid 1 MG, Thiamine 100 ... IV ONE ×5 (13:30)
[2020-02-20] MEDS: Dextrose 5%-Lactated Ringers 1,000 ML IV SCH ×2 (15:54→22:42)
[2020-02-20] MEDS ORDERED: Hyoscyamine 0.125 MG Tab.SL SL PRN (16:02)
[2020-02-20] MEDS ORDERED: Prochlorperazine 25 MG Supp RECTAL PRN (16:02)
[2020-02-20] MEDS ORDERED: LORazepam 1 MG Tab PO PRN (16:02)
[2020-02-20] MEDS ORDERED: Albuterol 8 GM Inhaler INH PRN (16:02)
[2020-02-20] MEDS: Pantoprazole 40 MG Vial IVPUSH SCH (17:25)
[2020-02-20] MEDS: Ketotifen 0.025% Ophth Soln 5 ML Bottle EYERT SCH (21:12)
[2020-02-20] MEDS: methylPREDNISolone Sodium Succinate 125 MG/2 ML SDV IVPUSH SCH (23:37)
[2020-02-21] MEDS: Metoclopramide 10 MG/2 ML SDV IVPUSH SCH ×4 (00:22→17:29)
[2020-02-21] MEDS: Dextrose 5%-Lactated Ringers 1,000 ML IV SCH ×3 (05:08→19:08)
[2020-02-21] MEDS: Pantoprazole 40 MG Vial IVPUSH SCH ×2 (05:11→17:29)
[2020-02-21] MEDS ORDERED: Propofol 200 MG/20 ML SDV ONE (07:05)
[2020-02-21] MEDS ORDERED: fentaNYL 100 MCG/2 ML SDV ONE (07:05)
[2020-02-21] MEDS ORDERED: Midazolam 1 MG/ML 2 ML SDV ONE (07:05)
[2020-02-21] MEDS ORDERED: Potassium Phosphates 60 MMOLE in Sodium Chloride 0.9% 250 ML IV SCH (07:45)
[2020-02-21] MEDS: Citalopram 20 MG Tab PO SCH (08:00)
[2020-02-21] MEDS: Lisinopril 20 MG Tab PO SCH (08:00)
[2020-02-21] MEDS: Hyoscyamine 0.125 MG Tab.SL SL SCH ×4 (08:00→19:07)
[2020-02-21] MEDS: Levothyroxine 112 MCG Tab PO SCH (08:00)
[2020-02-21] MEDS: SCOPOLAMINE PATCH CHECK TOP SCH (08:51)
[2020-02-21] MEDS: Ketotifen 0.025% Ophth Soln 5 ML Bottle EYERT SCH ×2 (08:51→20:45)
[2020-02-21] MEDS ORDERED: Glycopyrrolate 0.2 MG/ML 2 ML SDV IVPUSH ONE (09:15)
[2020-02-21] MEDS ORDERED: Magnesium Sulfate/Water 2 GM in Premix Bag 1 BAG IV SCH (10:00)
--- NOTE | 2020-02-21 10:34 | PN ---
DATE OF SERVICE: 02/21/2020 SUBJECTIVE: Izzy has had no further nausea. She has been getting hydrated with IV fluids. Potassium on admission was 2.8, this morning it is 3.1. It came up to 3.1 after getting 60 mEq of KCl. Oral intake per ice chips was 150, urine output 800. REVIEW OF SYSTEMS: CONSTITUTIONAL: Denies any fever, chills, night sweats, or fatigue. HEENT: No headache, dizziness. NECK: Negative. CHEST: No chest pain. HEART: Fast irregular heartbeat. LUNGS: No cough or shortness of breath. ABDOMEN: No nausea. Denies any abdominal pain. She is passing flatus, did not have a bowel movement within the past 24 hours. EXTREMITIES: No joint pain or swelling. NEUROLOGIC: No loss of coordination, weakness in extremities. PSYCHIATRIC: No insomnia, anxiety, depression. SKIN: Without rash. Remainder of review of systems negative for any pertinent positives and negatives. OBJECTIVE: GENERAL: Izzy is a pleasant 59-year-old female. VITAL SIGNS: Height 5 feet 2 inches. Weight is 200 pounds 12.8 ounces. TPR at 0656; 96.2, 58, 16. Blood pressure 111/70. HEENT: Negative. NECK: Supple. HEART: Regular rate and rhythm. LUNGS: Clear. ABDOMEN: Soft and nontender. EXTREMITIES: Without peripheral edema. NEUROLOGIC: Cranial nerves 2 through 12 intact. PSYCHIATRIC: Mood and affect appropriate. SKIN: Without rash. ASSESSMENT: Dehydration, nausea, vomiting, hypokalemia, status post Corinna fundoplication, dysphagia, essential hypertension, osteoarthritis. PLAN: 1. Magnesium 2 g IV q.6 hours x72 hours. 2. K-Phos 60 millimoles IV today. 3. Levsin 0.125 mg sublingual every 4 hours scheduled, to try to schedule those before meals. 4. Check CBC, CMP, phos in a.m. 5. Ensure Clear. 6. The patient will be having an EGD with dilatation later this morning, to remain n.p.o. until after EGD with dilatation. 7. We will evaluate p.r.n. or in a.m. Florencia Sloan PA-C /[id number]
[2020-02-21] MEDS: Potassium Phosphates 20 MMOLE in Sodium Chloride 0.9% 250 ML IV SCH ×3 (10:41→17:11)
[2020-02-21] MEDS: methylPREDNISolone Sodium Succinate 125 MG/2 ML SDV IVPUSH SCH (10:42)
[2020-02-21] MEDS: Azithromycin 125 MG in Sodium Chloride 0.9% 100 ML IV SCH (15:06)
[2020-02-21] MEDS: Magnesium Sulfate/Water 2 GM in Premix Bag 1 BAG IV SCH ×2 (15:10→22:04)
[2020-02-22] MEDS: Metoclopramide 10 MG/2 ML SDV IVPUSH SCH ×4 (00:45→17:46)
[2020-02-22] MEDS: Hyoscyamine 0.125 MG Tab.SL SL SCH ×6 (00:45→19:57)
[2020-02-22] MEDS: methylPREDNISolone Sodium Succinate 125 MG/2 ML SDV IVPUSH SCH ×3 (00:46→22:41)
[2020-02-22] MEDS: Azithromycin 125 MG in Sodium Chloride 0.9% 100 ML IV SCH ×2 (02:08→14:40)
[2020-02-22] MEDS: Magnesium Sulfate/Water 2 GM in Premix Bag 1 BAG IV SCH ×4 (04:34→22:35)
[2020-02-22] MEDS: Pantoprazole 40 MG Vial IVPUSH SCH ×2 (04:36→17:46)
[2020-02-22] MEDS: Dextrose 5%-Lactated Ringers 1,000 ML IV SCH ×2 (05:35→18:14)
[2020-02-22] MEDS: Levothyroxine 112 MCG Tab PO SCH (07:45)
[2020-02-22] MEDS: Docusate Sodium 100 MG Cap PO SCH ×2 (09:23→19:59)
[2020-02-22] MEDS: Ketotifen 0.025% Ophth Soln 5 ML Bottle EYERT SCH ×2 (09:56→19:59)
[2020-02-22] MEDS: Citalopram 20 MG Tab PO SCH ×2 (09:57→09:58)
[2020-02-22] MEDS: Lisinopril 20 MG Tab PO SCH ×2 (09:57→10:00)
[2020-02-22] MEDS ORDERED: Bisacodyl 5 MG Tab PO SCH (10:00)
[2020-02-22] MEDS: SCOPOLAMINE PATCH CHECK TOP SCH (10:00)
--- NOTE | 2020-02-22 10:04 | PN ---
DATE OF SERVICE: 02/22/2020 SUBJECTIVE: Izzy states that she is feeling much better. Vital signs have been stable. Oral intake recorded only on the evening shift was 655, day shift unknown. Urine output 550. EGD was done yesterday and started on Zithromax 125 mg daily. She reports no nausea, vomiting, or abdominal pain. REVIEW OF SYSTEMS: All systems were reviewed and negative for any pertinent positives and negatives. OBJECTIVE: GENERAL: Izzy Diaz is a pleasant 59-year-old female, alert, orientated, looks much better. VITAL SIGNS: TPR at 0747; 95.5, 62, 16. Blood pressure 125/79. HEENT: Negative. NECK: Supple. HEART: Regular rate and rhythm. LUNGS: Clear. ABDOMEN: Soft, nontender. EXTREMITIES: Without peripheral edema. ASSESSMENT: 1. Dysphagia. 2. Nausea, vomiting. 3. Hypokalemia. 4. Status post Corinna fundoplication. 5. Essential hypertension. 6. Dehydration. PLAN: 1. Full liquid diet. 2. Dietary consult. 3. K-Phos 60 millimoles IV 1 time today. 4. Check CBC and CMP in a.m. 5. Plan discharge in a.m. and patient will be going home on a Medrol Dosepak and Zithromax 125 mg daily. 6. We will evaluate p.r.n. or in a.m. Florencia Sloan PA-C /[id number]
[2020-02-22] MEDS: Potassium Phosphates 20 MMOLE in Sodium Chloride 0.9% 250 ML IV SCH ×3 (11:21→17:45)
[2020-02-22] MEDS ORDERED: Furosemide 20 MG/2 ML VIAL IVPUSH ONE (20:55)
[2020-02-23] MEDS: Hyoscyamine 0.125 MG Tab.SL SL SCH ×3 (00:49→07:55)
[2020-02-23] MEDS: Metoclopramide 10 MG/2 ML SDV IVPUSH SCH ×2 (00:50→05:36)
[2020-02-23] MEDS: Azithromycin 125 MG in Sodium Chloride 0.9% 100 ML IV SCH (02:18)
[2020-02-23] MEDS: Magnesium Sulfate/Water 2 GM in Premix Bag 1 BAG IV SCH (03:32)
[2020-02-23] MEDS: Pantoprazole 40 MG Vial IVPUSH SCH (05:37)
[2020-02-23] MEDS: Levothyroxine 112 MCG Tab PO SCH (07:48)
[2020-02-23] MEDS: Lisinopril 20 MG Tab PO SCH (09:16)
[2020-02-23] MEDS: Ketotifen 0.025% Ophth Soln 5 ML Bottle EYERT SCH (09:16)
[2020-02-23] MEDS: Docusate Sodium 100 MG Cap PO SCH (09:17)
[2020-02-23] MEDS: SCOPOLAMINE PATCH CHECK TOP SCH (09:17)
[2020-02-23] MEDS: Citalopram 20 MG Tab PO SCH (09:17)
--- NOTE | 2020-02-23 10:30 | DISCH ---
ADMISSION DIAGNOSES: 1. Dehydration. 2. Dysphagia. 3. Nausea and vomiting. 4. Hypokalemia. 5. Status post Corinna fundoplication. 6. Essential hypertension. 7. Osteoarthritis. DISCHARGE DIAGNOSES: 1. EGD with dilatation on 02/21/2020. 2. Dysphagia, resolved. 3. Nausea and vomiting, resolved. 4. Dehydration, resolved. 5. Hypokalemia, resolved. HISTORY: Izzy Diaz is a pleasant 59-year-old female, who had a laparoscopic Corinna fundoplication on 01/27/2020 and presented to the clinic with nausea, dry heaves, and vomiting. She was a direct admit to the hospital, was given IV fluids. On admission, her potassium was 2.8 and potassium was replaced. She had an EGD on 02/21/2020, with dilation and with IV Solu-Medrol, IV Reglan, and IV azithromycin. Izzy became asymptomatic as far as dysphagia, her oral intake was adequate. Vital signs stable and she was asymptomatic with dysphagia. Izzy was able to be discharged to home on 02/23/2020. REVIEW OF SYSTEMS: HEENT: Negative. GENERAL: No fever, chills, night sweats, or fatigue. NECK: Negative. CHEST: No chest pain, fast or irregular heart beat. LUNGS: No shortness of breath or cough. GI: No nausea, vomiting, or diarrhea. Two bowel movements within the past 24 hours. : No UTI signs and symptoms. NEUROLOGIC: No headaches, dizziness, loss of coordination. PSYCHIATRIC: Negative for any insomnia, depression, anxiety. SKIN: Without rash. Remainder of review of systems negative for any pertinent positives and negatives. OBJECTIVE: GENERAL: Izzy Diaz is a pleasant 59-year-old female. VITAL SIGNS: Height is 5 feet 2 inches. Weight is 200 pounds. BMI is 36. TPR at 0333, 94.7, 60, 18, blood pressure 104/64. HEENT: Negative. NECK: Supple. HEART: Regular rate and rhythm. LUNGS: Clear. ABDOMEN: Soft, nontender. EXTREMITIES: Without peripheral edema. NEUROLOGIC: Cranial nerves II through XII intact. EXTREMITIES: Without peripheral edema. SKIN: Without rash. PSYCHIATRIC: Mood and affect appropriate. DISPOSITION: Discharged to home. CONDITION: Stable and improving. FOLLOWUP: Appointment with Mike Helm MD, at [facility] on 02/29/2020 at 9 a.m. HOME MEDICATIONS: 1. Tylenol 650 mg oral q.4 hours p.r.n. pain. 2. Zithromax 250 mg, take 1/2 tablet (125 mg every morning), #30. 3. Colace 100 mg oral twice daily #100. 4. Hyoscyamine one tablets sublingual q.4 hours p.r.n. esophageal spasms, #30. 5. Prednisone 10 mg, take 6 tablets day #1 starting tomorrow, 5 tablets day #2, 4 tablets day #3, 3 tablets day #4, 2 tablets day #5, 1 tablet for 3 days, and 1/2 tablet for 4 days, #25. To resume home medications as she was taking prior to admission: 1. Albuterol inhaler 2 puffs every 4 hours p.r.n. shortness of breath. 2. Citalopram 20 mg oral daily. 3. Zaditor one drop ophthalmic twice daily. 4. Lorazepam 1 mg oral every 6 hours p.r.n. anxiety. 5. Levothyroxine 112 mcg oral daily. 6. Omeprazole 40 mg oral daily. 7. Potassium chloride 20 mEq oral twice daily. 8. Compazine 1 suppository rectally every 8 hours p.r.n. nausea and vomiting. 9. Lisinopril 20 mg oral daily. DIET: Full liquid diet. Drink 8 to 10 glasses of water a day. ACTIVITY: As tolerated. Shower/bathing: May shower. DISCHARGE INSTRUCTIONS: Notify provider if any fever, increased pain, nausea, or vomiting.
[2020-02-23] MEDS: methylPREDNISolone Sodium Succinate 125 MG/2 ML SDV IVPUSH SCH (10:41)
--- NOTE | 2020-02-29 16:28 | OR ---
DATE OF PROCEDURE: 02/21/2020 SURGEON: Mike Helm MD PREOPERATIVE DIAGNOSIS: Persistent dysphagia, status post Corinna fundoplication. POSTOPERATIVE DIAGNOSES: 1. Mild tightening of esophagogastric junction consistent with Corinna fundoplication. 2. Moderate amount of retained gastric bile. OPERATIVE PROCEDURE: Esophagogastroduodenoscopy with esophageal dilation (01630). ANESTHESIA: IV sedation. INDICATION FOR PROCEDURE: The patient is status post Corinna fundoplication and has had some persistent problems with dysphagia. Plan is to proceed with upper GI endoscopy with dilation as indicated. Potential risks of procedure including bleeding and perforation were discussed as well as the possibility that the procedure may not be significantly efficacious were all gone over, and the patient wishes to proceed. DETAILS OF PROCEDURE: The patient was taken to the operating room and placed in the left lateral decubitus position. IV sedation was administered, after which the upper GI endoscope was passed orally through the length of the esophagus and into the area of the esophagogastric junction. There was no significant esophageal dilation or retained contents. On insufflation, there was clear, fairly wide-open esophagogastric junction through the area of the fundoplication as one typically sees in these cases. The scope was easily passed through that area with no significant resistance, and the patient was noted to have moderate amount of retained gastric bile which may be contributing to some of the symptoms. Otherwise, the stomach and duodenum were unremarkable. At this point, the guidewire was passed into the stomach and the gastroscope withdrawn. A 54-Macanese Savary dilator was then passed over the guidewire and held in position for 1 minute, after which the dilator and wire were removed, and the patient was taken to the recovery room in satisfactory condition. The patient was given some IV Decadron and will be initiated on a course of Medrol Dosepak starting tomorrow to try to limit the amount of inflammation. We will see her back in recheck. She is being hydrated up today as well and added to the IV fluid. Mike Helm MD /[id number]
== END 2020-02-23 11:40 | disposition home or self-care (01) ==
LOC: JP.MS 10:57
PROVIDERS: ADMIT Surgery; ATTEND Surgery
DX: K91.89 Other postprocedural complications and disorders of digestive system (principal); K22.2 Esophageal obstruction; E87.6 Hypokalemia; E86.0 Dehydration; I10 Essential (primary) hypertension; M19.90 Unspecified osteoarthritis, unspecified site; Z79.899 Other long term (current) drug therapy
CPT/HCPCS: 36415; 43248; 80053; 81001; 83036; 83735; 84100; 84443; 85025; 85027; 96361; 96365; 96366; 96367; 96368; 96375; 96376; A9270; C9113; G0378; J0456; J1940; J2001; J2250; J2704; J2765; J2920; J2930; J3010; J3411; J3475; J3480; J7050; J7120; J7121; J3490